=== PATIENT | male | born 1950 | race Caucasian/White ===

== ENCOUNTER 2019-06-14 03:21 | Emergency (ER) | payer MEDICARE, BC ==
[2019-06-14] MEDS ORDERED: Phenylephrine 0.5% Nasal Spray 15 ML Bot NASBOTH PRN (03:39)
[2019-06-14 03:51] VITALS: BP 180/64; PULSE 68
--- NOTE | 2019-06-14 03:53 | EDM.PDOC ---
ED HPI GENERAL MEDICAL PROBLEM - General Chief Complaint: ENT Problem Stated Complaint: Bloody nose Time Seen by Provider: 06/14/19 03:44 Source of Information: Reports: Patient History Limitations: Reports: No Limitations - History of Present Illness INITIAL COMMENTS - FREE TEXT/NARRATIVE: Pt with acute onset bloody nose From right nares No trauma Pt seen in clinic earlier today for same Clinic placed gauze in nares at that time Onset: Today, Sudden Duration: Hour(s): Location: Reports: Face - Related Data Allergies Allergy/AdvReac Type Severity Reaction Status Date / Time ciprofloxacin Allergy Hives Verified 12/05/15 07:12 Penicillins Allergy Hives Verified 12/05/15 07:12 prednisone Allergy Confusion Verified 12/05/15 07:12 Escin (Aesculus) Allergy Hives Uncoded 12/05/15 07:12 Home Meds: Home Meds Aspirin [Ecotrin] 325 mg PO DAILY 09/04/15 [History] Lisinopril 40 mg PO DAILY #30 tablet 10/22/15 [Rx] Cyanocobalamin (Vitamin B-12) [Vitamin B-12] 1 tab PO DAILY 11/14/15 [History] Gabapentin [Neurontin] 100 mg PO DAILY 11/14/15 [History] Acetaminophen [Tylenol] 650 mg PO Q6H PRN 06/14/19 [History] Furosemide [Lasix] 40 mg PO DAILY 06/14/19 [History] Past Medical History HEENT History: Reports: Impaired Vision Cardiovascular History: Reports: Angina, High Cholesterol, Hypertension Respiratory History: Reports: Sleep Apnea Gastrointestinal History: Reports: Hemorrhoids Genitourinary History: Reports: None Musculoskeletal History: Reports: Other (See Below) Other Musculoskeletal History: Osteomyelitis of sternum and lumbar region Neurological History: Reports: Concussion, CVA, Migraines Psychiatric History: Reports: Depression Endocrine/Metabolic History: Reports: Diabetes, Type II Hematologic History: Reports: Blood Transfusion(s) Dermatologic History: Reports: Other (See Below) Other Dermatologic History: right toenail fungus and left foot great toe only - Infectious Disease History Infectious Disease History: Reports: Chicken Pox, Measles, Mumps, Rheumatic Fever, Rubella - Past Surgical History GI Surgical History: Reports: EGD, Hernia, Inguinal Musculoskeletal Surgical History: Reports: Other (See Below) ED ROS ENT - Review of Systems Review Of Systems: See Below HEENT: Reports: Nosebleed ED EXAM, ENT - Physical Exam Exam: See Below Exam Limited By: No Limitations General Appearance: Alert, No Apparent Distress Nose: Active Bleeding, Dried Blood, Other (Bleeding from right nares) Course - Orders/Labs/Meds Orders: Active Orders 24 hr Category Date Time Status Phenylephrine [Lebron-Synephrine 0.5% Regular Nasal [place]] Med 06/14/19 03:39 Active 10 ml NASBOTH ASDIRECTED PRN Medication Orders Phenylephrine HCl (Lebron-Synephrine 0.5% Regular Nasal [place]) 10 ml NASBOTH ASDIRECTED PRN PRN Reason: nose bleed Last Admin: 06/14/19 03:43 Dose: 10 ml Meds: Medications Generic Name Dose Route Start Last Admin Trade Name Freq PRN Reason Stop Dose Admin Phenylephrine HCl 10 ml 06/14/19 03:39 06/14/19 03:43 Lebron-Synephrine 0.5% Regular Nasal [place] NASBOTH 10 ml ASDIRECTED PRN Administration nose bleed - Re-Assessments/Exams Free Text/Narrative Re-Assessment/Exam: 06/14/19 03:49 7.5 cm nasal balloon placed in right nares without difficulty Departure - Departure Time of Disposition: 04:00 Disposition: Home, Self-Care 01 Clinical Impression: Epistaxis - Discharge Information *PRESCRIPTION DRUG MONITORING PROGRAM REVIEWED*: Not Applicable *COPY OF PRESCRIPTION DRUG MONITORING REPORT IN PATIENT ROMULO: Not Applicable Instructions: Nosebleed, [id number] Additional Instructions: Leave balloon in 48 hours Follow up in clinic - My Orders Last 24 Hours: My Active Orders 06/14/19 03:39 Phenylephrine [Lebron-Synephrine 0.5% Regular Nasal [place]] 10 ml NASBOTH ASDIRECTED PRN - Assessment/Plan Last 24 Hours: My Active Orders 06/14/19 03:39 Phenylephrine [Lebron-Synephrine 0.5% Regular Nasal [place]] 10 ml NASBOTH ASDIRECTED PRN
== END 2019-06-14 04:15 | disposition home or self-care (01) ==
LOC: LL.ED 03:21
DX: R04.0 Epistaxis (principal); I10 Essential (primary) hypertension; E78.00 Pure hypercholesterolemia, unspecified; E11.9 Type 2 diabetes mellitus without complications; F32.9 Major depressive disorder, single episode, unspecified; Z79.899 Other long term (current) drug therapy; Z79.82 Long term (current) use of aspirin; Z88.0 Allergy status to penicillin; Z88.1 Allergy status to other antibiotic agents; Z88.8 Allergy status to other drugs, medicaments and biological substances
CPT/HCPCS: 30903; 99283-25; A9270-GY

== ENCOUNTER 2019-06-14 17:46 | Inpatient (IN) | payer MEDICARE, BC ==
--- NOTE | 2019-06-14 17:55 | EDM.PDOC ---
ED HPI GENERAL MEDICAL PROBLEM - General Chief Complaint: General Stated Complaint: headache Time Seen by Provider: 06/14/19 17:46 Source of Information: Reports: Patient, Old Records ([facility] EMR. No paper hospital chart available.) History Limitations: Reports: No Limitations - History of Present Illness INITIAL COMMENTS - FREE TEXT/NARRATIVE: The patient drove himself to the emergency room via private automobile for evaluation of 7/10 throbbing bilateral frontal headache right greater than left , with symptoms starting at about 2 AM after he left this facility for treatment of right sided epistaxis. In addition, note that about 10 AM this morning the patient began experiencing some superior retrosternal 3/10 chest pressure with radiation to his neck bilaterally and intrascapular region. Symptoms were associated with some diaphoresis and nausea with no known previous history of coronary artery disease, although he has been diagnosed with angina based on his medical records. His blood pressures at home have been elevated in the 180s/60s with no medications taken for his symptoms to this point. He denies any medication noncompliance, although he has been holding his aspirin for about 1-2 weeks. No recent history of abdominal pain, heartburn, emesis, diarrhea, melena, gross hematochezia, or any food intolerance, including fatty foods, etc., although his stools been somewhat dark today secondary to his recent epistaxis above. He denies any gross hematuria, colic, or other UTI symptoms. The patient also denies any recent fever, cough, wheezing , dyspnea, etc.. No history of recent visual changes, diplopia, change in mental status, or other change in neurological status.. Onset: Today, Gradual Onset Date: 06/14/19 Onset Time: 02:00 Duration: Constant, Getting Worse Location: Reports: Head, Neck, Chest, Back, Radiates to. Denies: Face, Abdomen , Pelvis, Upper Extremity, Left, Upper Extremity, Right Quality: Reports: Pressure (As above), Throbbing Severity: Moderate Improves with: Reports: None Worsens with: Reports: None Context: Reports: Other (As above). Denies: Activity, Sick Contact, Trauma Associated Symptoms: Reports: Chest Pain, Diaphoresis, Headaches, Nausea/ Vomiting (As above). 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) Middle Chest Pain Score (Numeric/FACES): 3 Bilateral Frontal Headache Pain Score (Numeric/FACES): 7 - Related Data Allergies Allergy/AdvReac Type Severity Reaction Status Date / Time ciprofloxacin Allergy Hives Verified 06/14/19 18:14 Penicillins Allergy Hives Verified 06/14/19 18:14 prednisone Allergy Confusion Verified 06/14/19 18:14 Escin (Aesculus) Allergy Hives Uncoded 06/14/19 18:14 Home Meds: Home Meds Aspirin [Ecotrin] 325 mg PO DAILY 09/04/15 [History] Lisinopril 40 mg PO DAILY #30 tablet 10/22/15 [Rx] Cyanocobalamin (Vitamin B-12) [Vitamin B-12] 1 tab PO DAILY 11/14/15 [History] Gabapentin [Neurontin] 100 mg PO DAILY 11/14/15 [History] Acetaminophen [Tylenol] 650 mg PO Q6H PRN 06/14/19 [History] Furosemide [Lasix] 40 mg PO DAILY 06/14/19 [History] Metoprolol Tartrate 50 mg PO BID 06/14/19 [History] Sertraline [Zoloft] 50 mg PO DAILY 06/14/19 [History] Past Medical History HEENT History: Reports: Hard of Hearing, Impaired Vision, Other (See Below). 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 Patient wears glasses. Cardiovascular History: Reports: Angina, High Cholesterol, Hypertension, PVD, Other (See Below). Denies: Afib, Aneurysm, Arrhythmia, Blood Clots/VTE/DVT, Bypass, CAD, Cardiomyopathy, Heart Failure, Heart Murmur, ND, PTCA, Stents, Syncope Other Cardiovascular History: Known bilateral carotid occlusive disease with right sided complete internal carotid occlusion and secondary CVA with no surgery to this point. Respiratory History: Reports: Intubation, Previous, Other (See Below). Denies: Asthma, Bronchitis, Recurrent, COPD, Intubation, Difficult, PE, Pneumonia, Recurrent, Pneumothorax, Sleep Apnea, TB Other Respiratory History: In spite of previous medical records patient denies sleep apnea and has never had a sleep study. Gastrointestinal History: Reports: GERD, Hemorrhoids. Denies: Celiac Disease, Cholelithiasis, Chronic Constipation, Chronic Diarrhea, Colon Polyp, Fecal Incontinence, Gastritis, GI Bleed, Hepatitis, Hiatal Hernia, Inflammatory Bowel Disease, Irritable Bowel Syndrome, Jaundice, Pancreatitis, PUD Genitourinary History: Reports: BPH. Denies: Acute Renal Failure, Chronic Renal Insuffiency, Renal Calculus, STD, Urinary Incontinence, UTI, Recurrent Musculoskeletal History: Reports: Arthritis, Back Pain, Chronic, Fracture, Neck Pain, Chronic, Osteoarthritis, Other (See Below). Denies: Gout, Osteoporosis, RA, SLE Other Musculoskeletal History: Osteomyelitis of sternum and lumbar region requiring causing sternal surgery as below and additional extensive IV antibiotic therapy/hospitalization in 2016. Right distal fibular fracture on . Neurological History: Reports: CVA, Headaches, Chronic, Neuropathy, Peripheral, Other (See Below). Denies: Cerebral Aneurysms, Concussion, Head Trauma, MS, Parkinson's, Seizure, TIA, Vertigo Other Neuro History: Right CVA secondary to carotid occlusive disease in 2016 with borderline persistent mild left hemiparesis. Tension rather than migraine headaches by patient history. Radiculopathy versus peripheral neuropathy secondary to his osteoarthritis. Psychiatric History: Reports: Anxiety, Bipolar, Depression. Denies: Abuse, Victim of, ADD, ADHD, Addiction, Psych Hospitalization(s), PTSD, Suicide Attempt , Suicidal Ideation Endocrine/Metabolic History: Reports: Diabetes, Type II, Obesity/BMI 30+, Other (See Below). Denies: Diabetes, Type I, Diabetes Mellitus, Type 3c, Hypothyroidism, IDDM, Osteopenia, Osteoporosis Other Endocrine/Metabolic History: Borderline Diabetes with no current medical therapy. Hematologic History: Reports: Anemia, Blood Transfusion(s), Other (See Below). Denies: Iron Deficiency Other Hematologic History: 2 Units of packed red blood cells and 2017 with spinal fusion as below. Immunologic History: Denies: AIDS, HIV, SLE Oncologic (Cancer) History: Denies: Basal Cell Carcinoma, Colon, Hodgkin's Lymphoma, Leukemia, Lymphoma, Malignant Melanoma, Non-Hodgkin's Lymphoma, Prostate, Squamous Cell Carcinoma Dermatologic History: Reports: Chronic Cellulitis, Other (See Below) Other Dermatologic History: Chronic eschar/cellulitis in the lateral right knee area - Infectious Disease History Infectious Disease History: Reports: Chicken Pox, Measles, Mumps, Rheumatic Fever, Rubella. Denies: C-Difficile, Meningitis, Mononucleosis, MRSA, Pertussis (Whooping Cough), Scarlet Fever, Shingles, TB, VRE - Past Surgical History Head Surgeries/Procedures: Reports: None HEENT Surgical History: Reports: Oral Surgery, Other (See Below). Denies: Adenoidectomy, Cataract Surgery, Eye Surgery, Laser Surgery, LASIK, Myringotomy w Tube(s), Naso-Sinus Surgery, Tonsillectomy Other HEENT Surgeries/Procedures: Complete teeth extraction. Cardiovascular Surgical History: Reports: None. Denies: Carotid Endarterectomy , Varicose, Vascular Surgery Other Cardiovascular Surgeries/Procedures: Sternotomy on 09/04/15 secondary to osteomyelitis. Respiratory Surgical History: Reports: Thoracotomy, Other (See Below). Denies: Thoracentesis Other Respiratory Surgeries/Procedures: Sternotomy on 09/04/15 secondary to osteomyelitis. GI Surgical History: Reports: EGD, Hernia, Inguinal, Other (See Below). Denies : Appendectomy, Cholecystectomy, Colonoscopy, Hernia, Abdominal, Hernia Repair/ Other Other GI Surgeries/Procedures: EGD in 1979. Right inguinal hernia repair in 2001. Male Surgical History: Reports: None. Denies: Circumcision, TURP- Transurethral Resection of Prostate, Vasectomy Endocrine Surgical History: Reports: None. Denies: Thyroid Biopsy Neurological Surgical History: Reports: Lumbar Spine, Sacral Spine, Spinal Fusion, Other (See Below). Denies: C-Spine, Discectomy, Intracranial, Laminectomy, Thoracic Spine, Vertebroplasty Other Neurological Surgeries/Procedures: L4-S1 spinal fusion in 2017. Musculoskeletal Surgical History: Reports: None, Other (See Below). Denies: Arthroscopic Procedure, Carpal Tunnel, Ganglion Cyst, Joint Replacement, ORIF, Shoulder Surgery Oncologic Surgical History: Reports: None Dermatological Surgical History: Reports: None - Past Imaging History Past Imaging History: Reports: Bone Scan (10/01/15), Carotid US (05/04/18), CAT Scan (06/20/16), MRI (Lumbar spine on 09/28/15), Stress Testing (Exercise stress test in [address] [facility] per patient history) Social & Family History - Family History HEENT: Reports: Macular Degeneration, Other (See Below). Denies: Glaucoma, Retinal Detachment Other HEENT Family History: Mother with macular degeneration. Cardiac: Reports: Heart Failure, Hypertension, Other (See Below). Denies: Aneurysm, Arrhythmia, Blood Clots/VTE/DVT, Bypass, CAD, Heart Murmur, High Cholesterol, ND, PVD/COD, Syncope Other Cardiac Family History: Father with fatal CHF at age 87. Respiratory: Reports: None. Denies: Asthma, COPD, PE, Pneumothorax, Sleep Apnea GI: Reports: None. Denies: Celiac Disease, Cholelithiasis, Colon Polyps, GERD, GI bleed, Inflammatory Bowel Disease, Irritable Bowel Syndrome, PUD : Reports: Renal Calculus, Other (See Below). Denies: Renal Disease/ Insufficiency Other Family History: Father with urolithiasis Musculoskeletal: Reports: None. Denies: Arthritis, Gout, Osteoarthritis, RA, SLE Neurological: Reports: None. Denies: Alzheimers Disease, CVA, Dementia, Migraines, MS, Seizure, TIA Psychiatric: Reports: None. Denies: Abuse, Victim of, ADD, Anxiety, Depression , Psych Hospitalization(s), PTSD, Suicide Attempt Endocrine/Metabolic: Reports: Hypothyroidism, Other (See Below). Denies: Diabetes, Gestational, Diabetes, Type I, Diabetes, type II, Diabetes Mellitus, Type 3c Other Endocrine/Metabolic Family History: Mother with hypothyroidism. Hematologic: Reports: None. Denies: SLE Immunologic: Reports: None. Denies: AIDS, HIV, SLE Dermatologic: Reports: None. Denies: Eczema, Psoriasis Oncologic: Reports: Prostate, Other (See Below) Other Oncologic Family History: Brother with prostate cancer in his late 50s. - Tobacco Use Smoking Status *Q: Former Smoker Tobacco Use Within Last Twelve Months: No Years of Tobacco use: 46 Packs/Tins Daily: 1 Packs/Tins Daily Comment: Smoked between ages 19 and 65 with maximum use of 1.5 packs per day. Used Tobacco, but Quit: Yes Smoking Cessation Information Provided To Patient: No Second Hand Smoke Exposure: No Second Hand Smoke Education Provided: No - Caffeine Use Caffeine Use: Reports: Coffee (3 cups per day), Soda (2 sodas per day). Denies : Energy Drinks, Tea - Alcohol Use Alcohol Use History: Yes Days Per Week of Alcohol Use: 0 Number of Drinks Per Day: 0 Number of Drinks Per Day Comment: No previous DWIs, problems with alcohol abuse , etc. 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 ED EXAM, GENERAL - Physical Exam Exam: See Below Exam Limited By: No Limitations General Appearance: Alert, WD/WN, No Apparent Distress, Anxious (Mild) Eye Exam: Bilateral Eye: Normal Fundi, Normal Inspection (No nystagmus. Glasses not brought today), PERRL Ears: Normal External Exam, Normal Canal, Normal TMs, Hearing Loss (Bilateral chronic hearing loss stable by history- mild) Nose: No Blood, Clear Rhinorrhea, Other (Right-sided Rhino Rocket). No: Nasal Tenderness Throat/Mouth: Normal Lips, Normal Gums, Normal Oropharynx, Normal Voice, No Airway Compromise, Other (No evidence of posterior nasal bleeding in the hypopharynx ). No: Normal Teeth (Complete absent dentition with complete dentures uppers and lowers), Dysphagia, Perioral Cyanosis Head: Atraumatic, Normocephalic. No: Facial Swelling, Facial Tenderness, Sinus Tenderness Neck: Normal Inspection, Supple, Non-Tender, Full Range of Motion. No: Carotid Bruit, Lymphadenopathy (L), Lymphadenopathy (R), Thyromegaly Respiratory/Chest: No Respiratory Distress, No Accessory Muscle Use, Chest Non- Tender, Rales (Mild bilateral basilar rales). No: Pleural Rub, Retractions Cardiovascular: Normal Peripheral Pulses, Regular Rate, Rhythm, No Gallop, No JVD, No Murmur, No Rub. No: No Edema (Dependent edema as below), Gallop/S3, Gallop/S4, Friction Rub Peripheral Pulses: 2+: Radial (L), Radial (R), Dorsalis Pedis (L), Dorsalis Pedis (R) GI/Abdominal: Normal Bowel Sounds, Soft, Non-Tender, No Organomegaly, No Distention, No Abnormal Bruit, No Mass, Pelvis Stable, Other (Obese). No: Guarding (Male) Exam: Deferred Rectal (Males) Exam: Deferred Back Exam: Full Range of Motion, Other (Mild scoliosis). No: CVA Tenderness (L) , CVA Tenderness (R), Muscle Spasm, Paraspinal Tenderness, Vertebral Tenderness Extremities: Normal Inspection, Normal Range of Motion, Non-Tender, Normal Capillary Refill, Pedal Edema (Trace bilateral pedal/pretibial edema). No: Jelani's Sign Neurological: Alert, Oriented, CN II-XII Intact, Normal Cognition, Normal Gait, Normal Reflexes (Negative Babinski's), No Motor/Sensory Deficits Psychiatric: Anxious (Mild), Depressed Mood (Borderline) Skin Exam: Wound/Incision (1 cm chronic eschar in the lateral right knee area with no evidence of acute infection). No: Diaphoretic Lymphatic: No Adenopathy EKG INTERPRETATION EKG Date: 06/14/19 Time: 18:08 Rhythm: NSR Rate (Beats/Min): 92 [place]: Normal (Left) P-Wave: Present QRS: Normal (0.10 seconds representing mild repolarization changes) ST-T: Normal QT: Normal WY/PQ Interval: Neuro 0.13 seconds representing a short [place] interval with no delta waves noted. Extreme poor R-wave progression in the anterior leads. Comparison: NA - No Prior EKG EKG Interpretation Comments: 1. No acute ischemic changes 2. Repolarization changes 3. Short [place] interval Course - Vital Signs Last Recorded V/S: Last Vital Signs Temp 36.7 C 06/14/19 17:46 Pulse 80 06/14/19 19:50 Resp 16 06/14/19 19:50 BP 169/73 H 06/14/19 19:50 Pulse Ox 96 06/14/19 19:50 Vital Signs - 24 hr 06/14/19 06/14/19 06/14/19 17:46 17:52 17:56 Temperature [ 36.7 C Temporal] Pulse, 91 94 Peripheral [ Left Pulse Oximetry] Respiratory 16 Rate Blood Pressure Blood Pressure 211/77 H 225/106 H [Left Upper Arm ] O2 Sat by Pulse 96 Oximetry O2 Sat by Pulse 87 L Oximetry [Room Air] 06/14/19 06/14/19 06/14/19 17:57 18:15 18:24 Temperature [ Temporal] Pulse, 87 Peripheral [ Left Pulse Oximetry] Respiratory 14 Rate Blood Pressure 225/106 H 180/78 H Blood Pressure 177/73 H [Left Upper Arm ] O2 Sat by Pulse 95 Oximetry O2 Sat by Pulse Oximetry [Room Air] 06/14/19 06/14/19 06/14/19 19:00 19:15 19:30 Temperature [ Temporal] Pulse, 80 80 84 Peripheral [ Left Pulse Oximetry] Respiratory 12 13 14 Rate Blood Pressure Blood Pressure 199/81 H 205/73 H 185/67 H [Left Upper Arm ] O2 Sat by Pulse 94 L 94 L 94 L Oximetry O2 Sat by Pulse Oximetry [Room Air] 06/14/19 06/14/19 19:40 19:50 Temperature [ Temporal] Pulse, 85 80 Peripheral [ Left Pulse Oximetry] Respiratory 13 16 Rate Blood Pressure Blood Pressure 163/73 H 169/73 H [Left Upper Arm ] O2 Sat by Pulse 95 96 Oximetry O2 Sat by Pulse Oximetry [Room Air] - Orders/Labs/Meds Orders: Active Orders 24 hr Category Date Time Status Cardiac Monitoring [RC] . DIRECTED Care 06/14/19 17:56 Active EKG Documentation Completion [RC] ASDIRECTED Care 06/14/19 17:56 Active Oxygen Therapy, ED [RC] PRN Care 06/14/19 17:56 Active Peripheral IV Care [RC] . DIRECTED Care 06/14/19 17:56 Active Pulse Oximetry [RC] CONTINUOUS Care 06/14/19 17:56 Active Up With Assistance [RC] PFP Care 06/14/19 17:56 Active Vital Signs [RC] PFP Care 06/14/19 17:56 Active Nothing per Oral Now Diet [DIET] Diet 06/14/19 Breakfast Active Chest 1V Frontal [CR] Stat Exams 06/14/19 17:56 Taken Nitroglycerin [Nitrostat] Med 06/14/19 17:57 Stat 0.4 mg SL ONETIME STA Nitroglycerin [Nitrostat] Med 06/14/19 18:21 Stat 0.4 mg SL ONETIME STA Sodium Chloride 0.9% [Saline Flush] Med 06/14/19 17:56 Active 10 ml FLUSH ASDIRECTED PRN Obtain Past Medical Record [OM.PC] Urgent Oth 06/14/19 17:56 Active Peripheral IV Insertion Adult [OM.PC] Stat Oth 06/14/19 17:56 Ordered Resuscitation Status Stat Resus Stat 06/14/19 17:56 Ordered EKG 12 Lead [EK] Stat Ther 06/14/19 17:56 Ordered Medication Orders Nitroglycerin (Nitrostat) 0.4 mg SL ONETIME STA Stop: 06/15/19 17:58 Last Admin: 06/14/19 17:57 Dose: 0.4 mg Nitroglycerin (Nitrostat) 0.4 mg SL ONETIME STA Stop: 06/15/19 18:22 Last Admin: 06/14/19 18:24 Dose: 0.4 mg Sodium Chloride (Saline Flush) 10 ml FLUSH ASDIRECTED PRN PRN Reason: Keep Vein Open Last Admin: 06/14/19 19:37 Dose: 10 ml Admin: 06/14/19 19:21 Dose: 10 ml Admin: 06/14/19 18:25 Dose: 10 ml Labs: Laboratory Tests 06/14/19 06/14/19 06/14/19 Range/Units 18:04 18:04 18:04 WBC 8.8 (4.0-10.2) K/uL RBC 3.69 L (4.33-5.41) M/uL Hgb 12.6 L D (13.1-16.8) g/dL Hct 36.2 L (39.0-49.0) % MCV 98.1 H D (84.0-98.0) fL MCH 34.1 H (28.2-33.3) pg MCHC 34.8 (31.7-36.0) g/dL RDW 14.6 H (11.2-14.1) % Plt Count 201 (150-350) K/uL Neut % (Auto) 68.9 (45.0-80.0) % Lymph % (Auto) 20.8 (10.0-50.0) % [place] % (Auto) 8.4 (2.0-14.0) % Eos % (Auto) 1.3 (0.0-5.0) % Baso % (Auto) 0.6 (0.0-2.0) % Neut # (Auto) 6.07 (1.40-7.00) K/uL Lymph # (Auto) 1.83 (0.50-3.50) K/uL [place] # (Auto) 0.74 (0.00-1.00) K/uL Eos # (Auto) 0.11 (0.00-0.50) K/uL Baso # (Auto) 0.05 (0.00-0.20) K/uL PT 9.9 (9.5-12.0) SEC INR 1.0 APTT 25.8 (21.0-31.3) SEC D-Dimer, Quantitative 124 (0-400) ng/mL Sodium (136-145) mmol/L Potassium (3.5-5.1) mmol/L Chloride (98-107) mmol/L Carbon Dioxide (21.0-32.0) mmol/L BUN (7-18) mg/dL Creatinine (0.51-1.17) mg/dL Est Cr Clr Drug Dosing Estimated GFR (MDRD) mL/min Glucose (74-106) mg/dL Lactic Acid (0.4-2.0) mmol/L Uric Acid (2.6-7.2) mg/dL Calcium (8.5-10.1) mg/dL Magnesium (1.8-2.4) mg/dL Total Bilirubin (0.2-1.0) mg/dL AST (15-37) U/L ALT (12-78) U/L Alkaline Phosphatase (46-116) IU/L Creatine Kinase (26-308) U/L Creatine Kinase Index (0.0-2.5) % CK-MB (CK-2) (0.00-3.60) ng/mL Troponin I (0.000-0.056) ng/mL NT-Pro-B Natriuret Pep (0-125) pg/mL Total Protein (6.4-8.2) g/dL Albumin (3.4-5.0) g/dL TSH, Ultra Sensitive (0.358-3.740) mIU/mL 06/14/19 06/14/19 Range/Units 18:04 18:04 WBC (4.0-10.2) K/uL RBC (4.33-5.41) M/uL Hgb (13.1-16.8) g/dL Hct (39.0-49.0) % MCV (84.0-98.0) fL MCH (28.2-33.3) pg MCHC (31.7-36.0) g/dL RDW (11.2-14.1) % Plt Count (150-350) K/uL Neut % (Auto) (45.0-80.0) % Lymph % (Auto) (10.0-50.0) % [place] % (Auto) (2.0-14.0) % Eos % (Auto) (0.0-5.0) % Baso % (Auto) (0.0-2.0) % Neut # (Auto) (1.40-7.00) K/uL Lymph # (Auto) (0.50-3.50) K/uL [place] # (Auto) (0.00-1.00) K/uL Eos # (Auto) (0.00-0.50) K/uL Baso # (Auto) (0.00-0.20) K/uL PT (9.5-12.0) SEC INR APTT (21.0-31.3) SEC D-Dimer, Quantitative (0-400) ng/mL Sodium 140 (136-145) mmol/L Potassium 4.2 (3.5-5.1) mmol/L Chloride 103 (98-107) mmol/L Carbon Dioxide 27.5 (21.0-32.0) mmol/L BUN 18 (7-18) mg/dL Creatinine 1.61 H (0.51-1.17) mg/dL Est Cr Clr Drug Dosing TNP Estimated GFR (MDRD) 43 mL/min Glucose 215 H (74-106) mg/dL Lactic Acid 2.8 H (0.4-2.0) mmol/L Uric Acid 8.5 H (2.6-7.2) mg/dL Calcium 8.7 (8.5-10.1) mg/dL Magnesium 1.7 L (1.8-2.4) mg/dL Total Bilirubin 0.4 (0.2-1.0) mg/dL AST 22 (15-37) U/L ALT 36 (12-78) U/L Alkaline Phosphatase 60 (46-116) IU/L Creatine Kinase 133 (26-308) U/L Creatine Kinase Index 1.6 (0.0-2.5) % CK-MB (CK-2) 2.10 (0.00-3.60) ng/mL Troponin I 0.064 H* (0.000-0.056) ng/mL NT-Pro-B Natriuret Pep 1431 H (0-125) pg/mL Total Protein 6.9 (6.4-8.2) g/dL Albumin 3.6 (3.4-5.0) g/dL TSH, Ultra Sensitive 1.987 (0.358-3.740) mIU/mL Meds: Medications Generic Name Dose Route Start Last Admin Trade Name Marah PRN Reason Stop Dose Admin Nitroglycerin 0.4 mg 06/14/19 17:57 06/14/19 17:57 Nitrostat SL 06/15/19 17:58 0.4 mg ONETIME STA Administration Nitroglycerin 0.4 mg 06/14/19 18:21 06/14/19 18:24 Nitrostat SL 06/15/19 18:22 0.4 mg ONETIME STA Administration Sodium Chloride 10 ml 06/14/19 17:56 06/14/19 19:37 Saline Flush FLUSH 10 ml ASDIRECTED PRN Administration Keep Vein Open Discontinued Medications Generic Name Dose Route Start Last Admin Trade Name Freelaina PRN Reason Stop Dose Admin Famotidine 40 mg 06/14/19 17:56 06/14/19 18:25 Pepcid IVPUSH 06/14/19 17:57 40 mg ONETIME ONE Administration Furosemide 60 mg 06/14/19 18:43 06/14/19 19:02 Lasix IVPUSH 06/14/19 18:44 60 mg NOW ONE Administration Labetalol HCl 10 mg 06/14/19 19:15 06/14/19 19:20 Normodyne IVPUSH 06/14/19 19:16 10 mg ONETIME ONE Administration Protocol Labetalol HCl 10 mg 06/14/19 19:31 06/14/19 19:34 Normodyne IVPUSH 06/14/19 19:32 10 mg ONETIME ONE Administration Protocol Nitroglycerin 0.5 gm 06/14/19 19:01 06/14/19 19:04 Nitro-Bid 2% TOP 06/14/19 19:02 0.5 gm ONETIME ONE Administration Potassium Chloride 20 meq 06/14/19 18:43 06/14/19 19:03 Klor-Con M20 PO 06/14/19 18:44 20 meq ONETIME ONE Administration - Radiology Interpretation Free Text/Narrative:: 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 Chest X-ray, portable, shows evidence of borderline right middle lobe pulmonary infiltrates versus atelectasis with mild mostly centralized CHF. Possible pulmonary hypertension. No pneumothorax Departure - Departure Time of Disposition: 20:00 Disposition: Admitted As Inpatient 68 Condition: Good Clinical Impression: Peptic reflux disease, Hyperuricemia, Renal insufficiency, Elevated lactic acid level, Mixed anxiety depressive disorder, Hypomagnesemia Chest pain Qualifiers: Chest pain type: precordial pain Qualified Code(s): R07.2 - Precordial pain Hypertension Qualifiers: Hypertension type: essential hypertension Qualified Code(s): I10 - Essential ( primary) hypertension Diabetes mellitus Qualifiers: Diabetes mellitus type: type 2 Diabetes mellitus termination clerk insulin use: without termination clerk use Diabetes mellitus complication status: without complication Qualified Code(s): E11.9 - Type 2 diabetes mellitus without complications Hyperlipidemia Qualifiers: Hyperlipidemia type: mixed hyperlipidemia Qualified Code(s): E78.2 - Mixed hyperlipidemia CHF (congestive heart failure) Qualifiers: Heart failure type: unspecified Heart failure chronicity: acute Qualified Code( s): I50.9 - Heart failure, unspecified COPD (chronic obstructive pulmonary disease) Qualifiers: COPD type: emphysema Emphysema type: panlobular Qualified Code(s): J43.1 - Panlobular emphysema Anemia Qualifiers: Anemia type: unspecified type Qualified Code(s): D64.9 - Anemia, unspecified Headache Qualifiers: Headache type: unspecified Headache chronicity pattern: acute headache Intractability: not intractable Qualified Code(s): R51 - Headache - Discharge Information *PRESCRIPTION DRUG MONITORING PROGRAM REVIEWED*: Not Applicable *COPY OF PRESCRIPTION DRUG MONITORING REPORT IN PATIENT ROMULO: Not Applicable Sepsis Event Note - Focused Exam Vital Signs: Vital Signs Temp Pulse Resp BP BP Pulse Ox Pulse Ox 06/14/19 19:50 80 16 169/73 H 96 06/14/19 19:40 85 13 163/73 H 95 06/14/19 19:30 84 14 185/67 H 94 L 06/14/19 19:15 80 13 205/73 H 94 L 06/14/19 19:00 80 12 199/81 H 94 L 06/14/19 18:24 180/78 H 06/14/19 18:15 87 14 177/73 H 95 06/14/19 17:57 225/106 H 06/14/19 17:56 87 L 06/14/19 17:52 94 225/106 H 06/14/19 17:46 36.7 C 91 16 211/77 H 96 Date Exam was Performed: 06/14/19 Time Exam was Performed: 20:08 - Problem List & Annotations (1) Chest pain SNOMED Code(s): 72541545 Code(s): R07.9 - CHEST PAIN, UNSPECIFIED Status: Acute Priority: High Current Visit: Yes Onset Date: 06/14/19 Annotation/Comment:: Chest pain protocol initiated in the emergency room upon patient's arrival. Note secondary to his recent epistaxis his aspirin and Brilinta were held, however. Chest pain completely resolved after one sublingual nitroglycerin tablets with additional nitroglycerin and nitro paste therapy initiated for blood pressure control and secondary to his previous distant history of angina per medical records. Initiate standard rule out ND orders. Cardiology consultation depending on his clinical course area Cardiolite stress test on an outpatient basis once his blood pressure is under better control. Qualifiers: Chest pain type: precordial pain Qualified Code(s): R07.2 - Precordial pain (2) CHF (congestive heart failure) SNOMED Code(s): 80751068 Code(s): I50.9 - HEART FAILURE, UNSPECIFIED Status: Acute Priority: High Current Visit: Yes Onset Date: 06/14/19 Annotation/Comment:: Echocardiogram on an outpatient basis. IV Lasix therapy initiated in the emergency room. Patient is already on an WADE inhibitor. Qualifiers: Heart failure type: unspecified Heart failure chronicity: acute Qualified Code(s): I50.9 - Heart failure, unspecified (3) Hypertension SNOMED Code(s): 62542297 Code(s): I10 - ESSENTIAL (PRIMARY) HYPERTENSION Status: Acute Priority: High Current Visit: Yes Annotation/Comment:: Blood Pressures refractory to medical therapy in the emergency room as above with aggressive therapy required. Continue to observe closely during this hospitalization with further medication adjustments depending on his clinical course. Headaches improved with treatment of his hypertension despite nitroglycerin therapy as above. Qualifiers: Hypertension type: essential hypertension Qualified Code(s): I10 - Essential (primary) hypertension (4) Elevated lactic acid level SNOMED Code(s): 4825825 Code(s): R79.89 - OTHER SPECIFIED ABNORMAL FINDINGS OF BLOOD CHEMISTRY Status: Acute Priority: High Current Visit: Yes Onset Date: 06/14/19 Annotation/Comment:: No fever, leukocytosis, or symptoms. No known exposure to infection. Lactic acid level will be repeated in 3 hours as per standard sepsis protocol, however no clinical evidence of sepsis, etc. No IV hydration/fluids secondary to patient's CHF as above. (5) Diabetes mellitus SNOMED Code(s): 32691029 Code(s): E11.9 - TYPE 2 DIABETES MELLITUS WITHOUT COMPLICATIONS Status: Chronic Priority: Medium Current Visit: Yes Annotation/Comment:: Elevated random glucose. Glycosylated hemoglobin in the a.m. Qualifiers: Diabetes mellitus type: type 2 Diabetes mellitus termination clerk insulin use: without termination clerk use Diabetes mellitus complication status: without complication Qualified Code(s): E11.9 - Type 2 diabetes mellitus without complications (6) Hyperlipidemia SNOMED Code(s): 47449677 Code(s): E78.5 - HYPERLIPIDEMIA, UNSPECIFIED Status: Chronic Priority: Medium Current Visit: Yes Annotation/Comment:: Lipid panel in the a.m. Qualifiers: Hyperlipidemia type: mixed hyperlipidemia Qualified Code(s): E78.2 - Mixed hyperlipidemia (7) Hyperuricemia SNOMED Code(s): 32808293 Code(s): E79.0 - HYPERURICEMIA W/O SIGNS OF INFLAM ARTHRIT AND TOPHACEOUS DIS Status: Acute Priority: Medium Current Visit: Yes Onset Date: Annotation/Comment:: Newly diagnosed. No recent history of gout attacks. Arthritis is otherwise been stable. Observe uric acid closely secondary to his IV Lasix therapy as above. (8) Mixed anxiety depressive disorder SNOMED Code(s): 246689625 Code(s): F41.8 - OTHER SPECIFIED ANXIETY DISORDERS Status: Chronic Priority: Medium Current Visit: Yes Annotation/Comment:: Stable by history (9) Peptic reflux disease SNOMED Code(s): 964606937 Code(s): K21.9 - GASTRO-ESOPHAGEAL REFLUX DISEASE WITHOUT ESOPHAGITIS Status: Chronic Priority: Medium Current Visit: Yes Annotation/Comment:: High-dose IV Pepcid therapy given as GI prophylaxis. Otherwise stable by history. (10) Renal insufficiency SNOMED Code(s): 537266844, 928128292 Code(s): N28.9 - DISORDER OF KIDNEY AND URETER, UNSPECIFIED Status: Acute Priority: Medium Current Visit: Yes Onset Date: 06/14/19 Annotation/ Comment:: Newly diagnosed. Possible diabetic nephropathy. Note refractory hypertension as above with workup for renal artery stenosis depending on his clinical course. Note history of significant carotid occlusive disease. Continue WADE inhibitor therapy with caution for now. Obtain urine for microalbumin. Continue to closely secondary to IV Lasix therapy. (11) Epistaxis SNOMED Code(s): 486146663 Code(s): R04.0 - EPISTAXIS Status: Acute Priority: Medium Current Visit : Yes Onset Date: 06/14/19 Annotation/Comment:: Controlled with [employer] as above. Continue to observe for now. (12) Anemia SNOMED Code(s): 283767463 Code(s): D64.9 - ANEMIA, UNSPECIFIED Status: Acute Priority: Medium Current Visit: Yes Onset Date: 06/14/19 Annotation/Comment:: Note newly diagnosed renal insufficiency and recent epistaxis. Observe for now. Qualifiers: Anemia type: unspecified type Qualified Code(s): D64.9 - Anemia, unspecified (13) COPD (chronic obstructive pulmonary disease) SNOMED Code(s): 30107453 Code(s): J44.9 - CHRONIC OBSTRUCTIVE PULMONARY DISEASE, UNSPECIFIED Status : Acute Priority: Medium Current Visit: Yes Onset Date: 06/14/19 Annotation/Comment:: Note history of tobacco use. COPD by chest x-ray. Consider PFTs once his cardiac status, etc. has improved. Qualifiers: COPD type: emphysema Emphysema type: panlobular Qualified Code(s): J43.1 - Panlobular emphysema (14) Headache SNOMED Code(s): 79753014 Code(s): R51 - HEADACHE Status: Acute Priority: High Current Visit: Yes Onset Date: 06/14/19 Annotation/Comment:: As above Qualifiers: Headache type: unspecified Headache chronicity pattern: acute headache Intractability: not intractable Qualified Code(s): R51 - Headache (15) Hypomagnesemia SNOMED Code(s): 045553310 Code(s): E83.42 - HYPOMAGNESEMIA Status: Acute Priority: Medium Current Visit: Yes Onset Date: 06/14/19 Annotation/Comment:: Initiate magnesium oxide therapy. Consider magnesium sulfate for headache and blood pressure control. - Problem List Review Problem List Initiated/Reviewed/Updated: Yes - My Orders Last 24 Hours: My Active Orders 06/14/19 17:56 Cardiac Monitoring [RC] . DIRECTED EKG Documentation Completion [RC] ASDIRECTED Oxygen Therapy, ED [RC] PRN Peripheral IV Care [RC] . DIRECTED Pulse Oximetry [RC] CONTINUOUS Up With Assistance [RC] PFP Vital Signs [RC] PFP Chest 1V Frontal [CR] Stat Sodium Chloride 0.9% [Saline Flush] 10 ml FLUSH ASDIRECTED PRN Obtain Past Medical Record [OM.PC] Urgent Peripheral IV Insertion Adult [OM.PC] Stat Resuscitation Status Stat EKG 12 Lead [EK] Stat 06/14/19 17:57 Nitroglycerin [Nitrostat] 0.4 mg SL ONETIME STA 06/14/19 18:21 Nitroglycerin [Nitrostat] 0.4 mg SL ONETIME STA 06/14/19 Breakfast Nothing per Oral Now Diet [DIET] - Assessment/Plan Admission H&P: Please use this note as an admission H&P Last 24 Hours: My Active Orders 06/14/19 17:56 Cardiac Monitoring [RC] . DIRECTED EKG Documentation Completion [RC] ASDIRECTED Oxygen Therapy, ED [RC] PRN Peripheral IV Care [RC] . DIRECTED Pulse Oximetry [RC] CONTINUOUS Up With Assistance [RC] PFP Vital Signs [RC] PFP Chest 1V Frontal [CR] Stat Sodium Chloride 0.9% [Saline Flush] 10 ml FLUSH ASDIRECTED PRN Obtain Past Medical Record [OM.PC] Urgent Peripheral IV Insertion Adult [OM.PC] Stat Resuscitation Status Stat EKG 12 Lead [EK] Stat 06/14/19 17:57 Nitroglycerin [Nitrostat] 0.4 mg SL ONETIME STA 06/14/19 18:21 Nitroglycerin [Nitrostat] 0.4 mg SL ONETIME STA 06/14/19 Breakfast Nothing per Oral Now Diet [DIET] Assessment:: As above Plan: As above. Extensive precautions were given to the patient, who is in agreement with the treatment plan. The patient will require about 3-4 days of inpatient/ acute care secondary to multiple health problems as above.
[2019-06-14] MEDS ORDERED: Famotidine 20 MG/2 ML SDV IVPUSH ONE (17:56)
[2019-06-14] MEDS ORDERED: Nitroglycerin 0.4 MG Tab.SL SL STA ×2 (17:57→18:21)
[2019-06-14] MEDS: Sodium Chloride 0.9% 10 ML Syringe FLUSH PRN ×4 (18:25→21:17)
[2019-06-14 18:32] LABS: PTT,PARTIAL THROMBOPLSTIN TIME 25.8 SEC (21.0-31.3)
[2019-06-14 18:39] LABS: CHLORIDE,CL 103 mmol/L (98-107); SODIUM,NA 140 mmol/L (136-145)
[2019-06-14] MEDS ORDERED: Furosemide 40 MG/4 ML VIAL IVPUSH ONE (18:43)
[2019-06-14] MEDS ORDERED: Potassium Chloride 20 MEQ Tab.ER PO ONE (18:43)
[2019-06-14] MEDS ORDERED: Nitroglycerin 2% Oint 1 GM UD Packet TOP ONE (19:01)
[2019-06-14] MEDS ORDERED: Labetalol 20 MG/4 ML Syringe IVPUSH ONE ×2 (19:15→19:31)
[2019-06-14] MEDS ORDERED: Magnesium Sulfate/Water 100 ML IV ONE (20:26)
[2019-06-14] MEDS ORDERED: Sodium Chloride 0.9% 10 ML Syringe FLUSH PRN (20:27)
[2019-06-14] MEDS ORDERED: Temazepam 15 MG Cap PO PRN (20:27)
[2019-06-14] MEDS: Acetaminophen 325 MG Tab PO PRN (21:22)
[2019-06-15] MEDS: Nitroglycerin 2% Oint 1 GM UD Packet TOP SCH ×2 (01:54→10:06)
[2019-06-15] MEDS: Furosemide 40 MG/4 ML VIAL IVPUSH SCH ×2 (01:55→10:10)
[2019-06-15] MEDS: Acetaminophen 325 MG Tab PO PRN (01:58)
[2019-06-15] MEDS: Sodium Chloride 0.9% 10 ML Syringe FLUSH PRN ×2 (01:58→10:17)
[2019-06-15] MEDS ORDERED: Metoprolol Tartrate 25 MG Tab PO SCH (08:00)
[2019-06-15] MEDS ORDERED: Potassium Chloride 20 MEQ Tab.ER PO SCH (08:00)
[2019-06-15] MEDS ORDERED: Lisinopril 20 MG Tab PO SCH (08:00)
[2019-06-15] MEDS ORDERED: Cyanocobalamin (Vitamin B12) 1,000 MCG Tab PO SCH (08:00)
[2019-06-15] MEDS ORDERED: Gabapentin 100 MG Cap PO SCH (08:00)
[2019-06-15] MEDS ORDERED: Magnesium Oxide 400 MG Tab PO SCH (08:00)
[2019-06-15] MEDS ORDERED: Sertraline 50 MG Tab PO SCH (08:00)
[2019-06-15] MEDS ORDERED: cefTRIAXone 1 GM in Sodium Chloride 0.9% 100 ML IV SCH (08:45)
[2019-06-15 08:52] LABS: HEMOGLOBIN A1C 6.6 % (4.3-5.7)
[2019-06-15] MEDS ORDERED: Sulfamethoxazole/Trimethoprim 800-160 MG Tab PO SCH (09:00)
[2019-06-15] MEDS ORDERED: Spironolactone 25 MG Tab PO SCH (09:45)
[2019-06-15] MEDS ORDERED: Aspirin 81 MG Tab.Chew CHEW ONE (09:59)
[2019-06-15] MEDS ORDERED: Heparin Sodium 5,000 Units/ML Vial IVPUSH ONE (09:59)
--- NOTE | 2019-06-15 10:10 | PCM.DCSUM1 ---
Discharge Summary - Hospital Course HPI Initial Comments: See emergency room note/admission H&P Brief History: See emergency room note/admission H&P Diagnosis: Stroke: No Modified Umbarger Scale: No Symptoms at All Modified Umbarger Scale Score: 0 - Discharge Data Discharge Date: 06/15/19 Discharge Disposition: DC/Tfer to Acute Hospital 02 Condition: Good - Referral to Home Health Primary Care Physician: PCP None - Discharge Diagnosis/Problem(s) (1) Chest pain SNOMED Code(s): 65896287 ICD Code: R07.9 - CHEST PAIN, UNSPECIFIED Status: Acute Priority: High Current Visit: Yes Onset Date: 06/14/19 Problem Details: Note that patient remained completely chest pain-free throughout this hospitalization with resolution chest pain shortly after only one sublingual nitroglycerin tablet was given as below. Note, however, that patient did have persistent elevated troponin I with otherwise normal CK, cardiac index and CK-MB. No Evidence of acute NE by serial EKGs and 2 during this hospitalization. Telephone consultation at 09:46 AM with Ede Taylor M.D., emergency room physician at [facility], who does accept the patient for further treatment, evaluation, cardiology consultation, etc.. Various therapeutic options were discussed with Dr. Taylor with 4 baby aspirin chew and swallow and 1 IV bolus of 4000 units of heparin given to the patient shortly after this consultation. Note recent epistaxis as below with mild beginning epistaxis in the left naris prior to transfer but no other significant bleeding. Chest pain protocol initiated in the emergency room upon patient's arrival. Note secondary to his recent epistaxis his aspirin and Brilinta were held initially, however. Chest pain completely resolved after one sublingual nitroglycerin tablet with additional nitroglycerin tablets and nitro-paste therapy initiated for blood pressure control and secondary to his previous distant history of angina per medical records. Initiated standard rule out NE orders. Cardiology consultation recommended as above. Note mild progressive renal insufficiency with heart catheterization with caution depending on his clinical course. Some delay in hospital transfer secondary to lack of ambulance availability, however no sequelae. Qualifiers: Chest pain type: precordial pain Qualified Code(s): R07.2 - Precordial pain (2) CHF (congestive heart failure) SNOMED Code(s): 61961446 ICD Code: I50.9 - HEART FAILURE, UNSPECIFIED Status: Acute Priority: High Current Visit: Yes Onset Date: 06/14/19 Problem Details: Consider Echocardiogram by accepting providers. IV Lasix therapy initiated in the emergency room with excellent results with further IV Lasix therapy during this hospitalization. Spironolactone was initiated prior to discharge secondary to persistent hypertension. Further medication adjustments by his accepting providers depending on his clinical course. Nitro paste therapy was continued. Patient is already on an WADE inhibitor. Qualifiers: Heart failure type: unspecified Heart failure chronicity: acute Qualified Code(s): I50.9 - Heart failure, unspecified (3) Hypertension SNOMED Code(s): 65365253 ICD Code: I10 - ESSENTIAL (PRIMARY) HYPERTENSION Status: Acute Priority: High Current Visit: Yes Problem Details: Blood pressures initially significantly improved shortly after admission including systolic blood pressures in the 120s as below. Some elevated blood pressures this morning with delay in patient receiving his morning medications. Additional spironolactone initiated this morning as above. Blood Pressures were refractory to medical therapy in the emergency room as above with aggressive therapy required, including IV labetalol, etc. as per the emergency room note. Qualifiers: Hypertension type: essential hypertension Qualified Code(s): I10 - Essential (primary) hypertension (4) Elevated lactic acid level SNOMED Code(s): 6160447 ICD Code: R79.89 - OTHER SPECIFIED ABNORMAL FINDINGS OF BLOOD CHEMISTRY Status: Acute Priority: High Current Visit: Yes Onset Date: 06/14/19 Problem Details: Initial improvement of patient's lactic acid level however some elevation today. Now suspect pneumonia based on chest x-ray on admission. Mild leukocytosis this morning. IV Rocephin therapy initiated prior to discharge. No fever, leukocytosis, or symptoms prior to admission. No known exposure to infection. No clinical evidence of sepsis, etc. No IV hydration/ fluids secondary to patient's CHF as above. (5) Diabetes mellitus SNOMED Code(s): 40796936 ICD Code: E11.9 - TYPE 2 DIABETES MELLITUS WITHOUT COMPLICATIONS Status: Chronic Priority: Medium Current Visit: Yes Problem Details: Elevated random glucose of admission with glycosylated hemoglobin of 6.6% on 06/15/19. Qualifiers: Diabetes mellitus type: type 2 Diabetes mellitus skilled nursing insulin use: without skilled nursing use Diabetes mellitus complication status: without complication Qualified Code(s): E11.9 - Type 2 diabetes mellitus without complications (6) Hyperlipidemia SNOMED Code(s): 90259258 ICD Code: E78.5 - HYPERLIPIDEMIA, UNSPECIFIED Status: Chronic Priority: Medium Current Visit: Yes Problem Details: Lipid panel this morning on shows persistent moderate dyslipidemia despite current medical therapy. Further medication adjustment by accepting providers. Weight loss in moderation advisable. Qualifiers: Hyperlipidemia type: mixed hyperlipidemia Qualified Code(s): E78.2 - Mixed hyperlipidemia (7) Hyperuricemia SNOMED Code(s): 08303737 ICD Code: E79.0 - HYPERURICEMIA W/O SIGNS OF INFLAM ARTHRIT AND TOPHACEOUS DIS Status: Acute Priority: Medium Current Visit: Yes Onset Date: Problem Details: Newly diagnosed. No recent history of gout attacks. Arthritis is otherwise been stable. Observe uric acid closely secondary to his IV Lasix therapy as above. (8) Mixed anxiety depressive disorder SNOMED Code(s): 133818188 ICD Code: F41.8 - OTHER SPECIFIED ANXIETY DISORDERS Status: Chronic Priority: Medium Current Visit: Yes Problem Details: Stable by history (9) Peptic reflux disease SNOMED Code(s): 143361820 ICD Code: K21.9 - GASTRO-ESOPHAGEAL REFLUX DISEASE WITHOUT ESOPHAGITIS Status: Chronic Priority: Medium Current Visit: Yes Problem Details: High- dose IV Pepcid therapy given as GI prophylaxis. Otherwise stable by history. (10) Renal insufficiency SNOMED Code(s): 930958584, 681073732 ICD Code: N28.9 - DISORDER OF KIDNEY AND URETER, UNSPECIFIED Status: Acute Priority: Medium Current Visit: Yes Onset Date: 06/14/19 Problem Details: Newly diagnosed possible diabetic nephropathy. Urine for Microalbumin has been ordered. Note refractory hypertension as above with workup for renal artery stenosis depending on his clinical course. Note history of significant carotid occlusive disease. Continue WADE inhibitor therapy with caution for now. Continue to observe closely secondary to IV Lasix therapy. Mild progressive creatinine elevation today secondary to his therapy, however. (11) Epistaxis SNOMED Code(s): 679648817 ICD Code: R04.0 - EPISTAXIS Status: Acute Priority: Medium Current Visit: Yes Onset Date: 06/14/19 Problem Details: Controlled with Rhino Rocket as above. Continue to observe for now. (12) Anemia SNOMED Code(s): 005535390 ICD Code: D64.9 - ANEMIA, UNSPECIFIED Status: Acute Priority: Medium Current Visit: Yes Onset Date: 06/14/19 Problem Details: Note newly diagnosed renal insufficiency and recent epistaxis. Observe for now. Qualifiers: Anemia type: unspecified type Qualified Code(s): D64.9 - Anemia, unspecified (13) COPD (chronic obstructive pulmonary disease) SNOMED Code(s): 78143821 ICD Code: J44.9 - CHRONIC OBSTRUCTIVE PULMONARY DISEASE, UNSPECIFIED Status : Acute Priority: Medium Current Visit: Yes Onset Date: 06/14/19 Problem Details: Note history of tobacco use. COPD by chest x-ray. Consider PFTs once his cardiac status, etc. has improved. Qualifiers: COPD type: emphysema Emphysema type: panlobular Qualified Code(s): J43.1 - Panlobular emphysema (14) Headache SNOMED Code(s): 03256443 ICD Code: R51 - HEADACHE Status: Acute Priority: High Current Visit: Yes Onset Date: 06/14/19 Problem Details: As above. Improved during this hospitalization however mild persistent headache today. Qualifiers: Headache type: unspecified Headache chronicity pattern: acute headache Intractability: not intractable Qualified Code(s): R51 - Headache (15) Hypomagnesemia SNOMED Code(s): 085097590 ICD Code: E83.42 - HYPOMAGNESEMIA Status: Acute Priority: Medium Current Visit: Yes Onset Date: 06/14/19 Problem Details: Initiated magnesium oxide therapy this morning. Magnesium sulfate grams IV given yesterday for his headache and blood pressure control. (16) Pneumonia SNOMED Code(s): 456476598 ICD Code: J18.9 - PNEUMONIA, UNSPECIFIED ORGANISM Status: Acute Priority : High Current Visit: Yes Onset Date: ~06/14/19 Problem Details: As above. Sputum could not be obtained during this hospitalization. Consider blood cultures depending on his clinical course. Qualifiers: Pneumonia type: due to unspecified organism Laterality: right Lung location: middle lobe of lung Qualified Code(s): J18.9 - Pneumonia, unspecified organism - Patient Summary/Data Complications: None Consults: Emergency room physician as above. Labs Pending at D/C: 1. Urine for microalbumin. 2. Final chest x-ray report from 06/14/18 3. Urine Culture and sensitivity. Recommended Follow-up Testing/Procedures: Ambulance transfer with wellhead pumper accompaniment. Hospital Course: The patient was admitted to acute care with close observation of his cardiac status, blood pressure, etc.. No recurrence of his chest pain and significantly improved blood pressures during this hospitalizations as above. Excellent response to aggressive IV diuresis and change of his medications as above. Secondary to concerns of possible beginning unstable angina hospital transfer was warrented, however. Probable beginning right middle lobe concomitant pneumonia without direct evidence of sepsis or COPD exacerbation. Ambulance transfer with wellhead pumper accompaniment as above. - Patient Instructions Diet: NPO Activity: Bedrest, May Use Bathroom Driving: Do Not Drive Showering/Bathing: No Showering Notify Provider of: Increased Pain, Nausea and/or Vomiting - Discharge Plan *PRESCRIPTION DRUG MONITORING PROGRAM REVIEWED*: Not Applicable *COPY OF PRESCRIPTION DRUG MONITORING REPORT IN PATIENT ROMULO: Not Applicable Home Medications: Home Meds Aspirin [Ecotrin] 325 mg PO DAILY 09/04/15 [History] Lisinopril 40 mg PO DAILY #30 tablet 10/22/15 [Rx] Cyanocobalamin (Vitamin B-12) [Vitamin B-12] 1 tab PO DAILY 11/14/15 [History] Gabapentin [Neurontin] 100 mg PO DAILY 11/14/15 [History] Acetaminophen [Tylenol] 650 mg PO Q6H PRN 06/14/19 [History] Furosemide [Lasix] 40 mg PO DAILY 06/14/19 [History] Metoprolol Tartrate 50 mg PO BID 06/14/19 [History] Sertraline [Zoloft] 50 mg PO DAILY 06/14/19 [History] Oxygen Therapy Mode: Room Air Forms: ED Department Discharge, Interfacility Transfer EMTALA Referrals: PCP,None [Primary Care Provider] - - Discharge Summary/Plan Comment DC Time >30 min.: Yes (Coordination of care ) Discharge Summary/Plan Comment: As above. Extensive precautions were given to the patient, who is in agreement with the treatment plan. Ambulance transfer with wellhead pumper accompaniment. - General Info Date of Service: 06/15/19 Admission Dx/Problem (Free Text: 1. CHF 2. Coronary artery disease 3. Hypertension Functional Status: Reports: Pain Controlled, Tolerating Diet, Ambulating, Urinating, Incentive Spirometry. Denies: New Symptoms Numeric/FACES Score: 4 (Bilateral frontal headache) - Review of Systems General: Reports: No Symptoms. Denies: Fever, Weakness, Chills, Night Sweats, Appetite HEENT: Reports: Glasses, Other (Right sided epistaxis improved with Rhino Rocket with borderline beginning mild left epistaxis). Denies: Dysphasia, Ear Pain, Eye Pain, Headaches, Sinus Congestion, Sore Throat, Rhinitis Pulmonary: Reports: No Symptoms. Denies: Shortness of Breath, Pleuritic Chest Pain, Cough, Sputum, Hemoptysis, Wheezing Cardiovascular: Reports: Edema (Improved). Denies: Chest Pain, Palpitations, Dyspnea on Exertion, Orthopnea, Lightheadedness Gastrointestinal: Reports: No Symptoms, Other (No bowel movement since admission ). Denies: Abdominal Pain, Constipation, Decreased Appetite, Diarrhea, Difficulty Swallowing, Flatus, Hematochezia, Melena, Nausea, Vomiting Genitourinary: Reports: No Symptoms. Denies: Dysuria, Frequency, Burning, Pain , Urgency, Hematuria, Retention, Flank Pain, Other Musculoskeletal: Reports: No Symptoms. Denies: Neck Pain, Shoulder Pain, Arm Pain, Back Pain, Leg Pain Skin: Reports: No Symptoms. Denies: Diaphoresis, Bruising Neurological: Reports: Headache. Denies: Confusion, Dizziness, Numbness, Paresthesia, Pre-Existing Deficit, Tingling, Weakness Psychiatric: Reports: No Symptoms. Denies: Confusion, Depression, Anxiety, Agitation, Cravings - Patient Data Vitals - Most Recent: Last Vital Signs Temp 37.1 C 06/15/19 06:00 Pulse 81 06/15/19 04:00 Resp 12 06/15/19 06:00 BP 172/86 H 06/15/19 06:00 Pulse Ox 96 06/15/19 06:00 Vital Signs - 24 hr 06/14/19 06/14/19 06/14/19 17:46 17:52 17:56 Temperature [ Oral] Temperature [ 36.7 C Temporal] Pulse, Peripheral Pulse, 91 94 Peripheral [ Left Pulse Oximetry] Respiratory 16 Rate Blood Pressure Blood Pressure 211/77 H 225/106 H [Left Upper Arm ] O2 Sat by Pulse 96 Oximetry O2 Sat by Pulse 87 L Oximetry [Room Air] 06/14/19 06/14/19 06/14/19 17:57 18:15 18:24 Temperature [ Oral] Temperature [ Temporal] Pulse, Peripheral Pulse, 87 Peripheral [ Left Pulse Oximetry] Respiratory 14 Rate Blood Pressure 225/106 H 180/78 H Blood Pressure 177/73 H [Left Upper Arm ] O2 Sat by Pulse 95 Oximetry O2 Sat by Pulse Oximetry [Room Air] 06/14/19 06/14/19 06/14/19 19:00 19:15 19:30 Temperature [ Oral] Temperature [ Temporal] Pulse, Peripheral Pulse, 80 80 84 Peripheral [ Left Pulse Oximetry] Respiratory 12 13 14 Rate Blood Pressure Blood Pressure 199/81 H 205/73 H 185/67 H [Left Upper Arm ] O2 Sat by Pulse 94 L 94 L 94 L Oximetry O2 Sat by Pulse Oximetry [Room Air] 06/14/19 06/14/19 06/14/19 19:40 19:50 20:27 Temperature [ Oral] Temperature [ 36.8 C Temporal] Pulse, Peripheral Pulse, 85 80 81 Peripheral [ Left Pulse Oximetry] Respiratory 13 16 16 Rate Blood Pressure Blood Pressure 163/73 H 169/73 H 162/70 H [Left Upper Arm ] O2 Sat by Pulse 95 96 95 Oximetry O2 Sat by Pulse Oximetry [Room Air] 06/14/19 06/15/19 06/15/19 22:00 00:00 02:00 Temperature [ 37.4 C 36.9 C Oral] Temperature [ 36.9 C Temporal] Pulse, Peripheral Pulse, 81 84 81 Peripheral [ Left Pulse Oximetry] Respiratory 14 14 12 Rate Blood Pressure Blood Pressure 129/54 L 130/56 L 160/67 H [Left Upper Arm ] O2 Sat by Pulse 94 L 92 L 95 Oximetry O2 Sat by Pulse Oximetry [Room Air] 06/15/19 06/15/19 06/15/19 04:00 06:00 10:07 Temperature [ Oral] Temperature [ 36.8 C 37.1 C Temporal] Pulse, 70 Peripheral Pulse, 81 Peripheral [ Left Pulse Oximetry] Respiratory 12 12 Rate Blood Pressure 167/67 H Blood Pressure 172/68 H 172/86 H [Left Upper Arm ] O2 Sat by Pulse 96 96 Oximetry O2 Sat by Pulse Oximetry [Room Air] 06/15/19 10:08 Temperature [ Oral] Temperature [ Temporal] Pulse, Peripheral Pulse, Peripheral [ Left Pulse Oximetry] Respiratory Rate Blood Pressure 167/65 H Blood Pressure [Left Upper Arm ] O2 Sat by Pulse Oximetry O2 Sat by Pulse Oximetry [Room Air] Weight - Most Recent: 119.748 kg I&O - Last 24 hours: Intake & Output 06/14/19 06/15/19 06/15/19 22:59 06:59 14:59 Output Total 600 Balance -600 Imaging Impressions - Last 24 hrs: Radial [employer] shows normal sinus rhythm in the 80s with no ectopy or arrhythmia. Chest X-ray, portable, on 06/14/19 shows evidence of borderline right middle lobe pulmonary infiltrates versus atelectasis with mild mostly centralized CHF. Possible pulmonary hypertension. No pneumothorax Lab Results - Last 24 hrs: Laboratory Results - last 24 hr 06/14/19 06/14/19 06/14/19 Range/Units 10:05 18:04 18:04 WBC 8.8 (4.0-10.2) K/uL RBC 3.69 L (4.33-5.41) M/uL Hgb 12.6 L D (13.1-16.8) g/dL Hct 36.2 L (39.0-49.0) % MCV 98.1 H D (84.0-98.0) fL MCH 34.1 H (28.2-33.3) pg MCHC 34.8 (31.7-36.0) g/dL RDW 14.6 H (11.2-14.1) % Plt Count 201 (150-350) K/uL Neut % (Auto) 68.9 (45.0-80.0) % Lymph % (Auto) 20.8 (10.0-50.0) % [place] % (Auto) 8.4 (2.0-14.0) % Eos % (Auto) 1.3 (0.0-5.0) % Baso % (Auto) 0.6 (0.0-2.0) % Neut # (Auto) 6.07 (1.40-7.00) K/uL Lymph # (Auto) 1.83 (0.50-3.50) K/uL [place] # (Auto) 0.74 (0.00-1.00) K/uL Eos # (Auto) 0.11 (0.00-0.50) K/uL Baso # (Auto) 0.05 (0.00-0.20) K/uL PT 9.9 (9.5-12.0) SEC INR 1.0 APTT 25.8 (21.0-31.3) SEC D-Dimer, Quantitative (0-400) ng/mL Sodium (136-145) mmol/L Potassium (3.5-5.1) mmol/L Chloride (98-107) mmol/L Carbon Dioxide (21.0-32.0) mmol/L BUN (7-18) mg/dL Creatinine (0.51-1.17) mg/dL Est Cr Clr Drug Dosing Estimated GFR (MDRD) mL/min Glucose (74-106) mg/dL Hemoglobin A1c (4.3-5.7) % Lactic Acid (0.4-2.0) mmol/L Uric Acid (2.6-7.2) mg/dL Calcium (8.5-10.1) mg/dL Magnesium (1.8-2.4) mg/dL Total Bilirubin (0.2-1.0) mg/dL AST (15-37) U/L ALT (12-78) U/L Alkaline Phosphatase (46-116) IU/L Creatine Kinase 121 (26-308) U/L Creatine Kinase Index 1.6 (0.0-2.5) % CK-MB (CK-2) 1.90 (0.00-3.60) ng/mL Troponin I 0.083 H* (0.000-0.056) ng/mL NT-Pro-B Natriuret Pep (0-125) pg/mL Total Protein (6.4-8.2) g/dL Albumin (3.4-5.0) g/dL Triglycerides (30-150) mg/dL Cholesterol (100-200) mg/dL LDL Cholesterol, Calc (0-100) mg/dL HDL Cholesterol (40-60) mg/dL TSH, Ultra Sensitive (0.358-3.740) mIU/mL Specimen Type Urine Color Urine Appearance Urine pH (5.0-9.0) Ur Specific [place] (1.005-1.030) Urine Protein (NEGATIVE) mg/dL Urine Glucose (UA) (NEGATIVE) mg/dL Urine Ketones (NEGATIVE) mg/dL Urine Occult Blood (NEGATIVE) Urine Nitrite (NEGATIVE) Urine Bilirubin (NEGATIVE) Urine Urobilinogen (0.2-1.0) E.U./dL Ur Leukocyte Esterase (NEGATIVE) U Hyaline Cast (Auto) Urine RBC /HPF Urine WBC /HPF Ur Epithelial Cells /LPF Urine Bacteria (NONE TO FEW) /HPF Urine Other 06/14/19 06/14/19 06/14/19 Range/Units 18:04 18:04 18:04 WBC (4.0-10.2) K/uL RBC (4.33-5.41) M/uL Hgb (13.1-16.8) g/dL Hct (39.0-49.0) % MCV (84.0-98.0) fL MCH (28.2-33.3) pg MCHC (31.7-36.0) g/dL RDW (11.2-14.1) % Plt Count (150-350) K/uL Neut % (Auto) (45.0-80.0) % Lymph % (Auto) (10.0-50.0) % [place] % (Auto) (2.0-14.0) % Eos % (Auto) (0.0-5.0) % Baso % (Auto) (0.0-2.0) % Neut # (Auto) (1.40-7.00) K/uL Lymph # (Auto) (0.50-3.50) K/uL [place] # (Auto) (0.00-1.00) K/uL Eos # (Auto) (0.00-0.50) K/uL Baso # (Auto) (0.00-0.20) K/uL PT (9.5-12.0) SEC INR APTT (21.0-31.3) SEC D-Dimer, Quantitative 124 (0-400) ng/mL Sodium 140 (136-145) mmol/L Potassium 4.2 (3.5-5.1) mmol/L Chloride 103 (98-107) mmol/L Carbon Dioxide 27.5 (21.0-32.0) mmol/L BUN 18 (7-18) mg/dL Creatinine 1.61 H (0.51-1.17) mg/dL Est Cr Clr Drug Dosing TNP Estimated GFR (MDRD) 43 mL/min Glucose 215 H (74-106) mg/dL Hemoglobin A1c (4.3-5.7) % Lactic Acid 2.8 H (0.4-2.0) mmol/L Uric Acid 8.5 H (2.6-7.2) mg/dL Calcium 8.7 (8.5-10.1) mg/dL Magnesium 1.7 L (1.8-2.4) mg/dL Total Bilirubin 0.4 (0.2-1.0) mg/dL AST 22 (15-37) U/L ALT 36 (12-78) U/L Alkaline Phosphatase 60 (46-116) IU/L Creatine Kinase 133 (26-308) U/L Creatine Kinase Index 1.6 (0.0-2.5) % CK-MB (CK-2) 2.10 (0.00-3.60) ng/mL Troponin I 0.064 H* (0.000-0.056) ng/mL NT-Pro-B Natriuret Pep 1431 H (0-125) pg/mL Total Protein 6.9 (6.4-8.2) g/dL Albumin 3.6 (3.4-5.0) g/dL Triglycerides (30-150) mg/dL Cholesterol (100-200) mg/dL LDL Cholesterol, Calc (0-100) mg/dL HDL Cholesterol (40-60) mg/dL TSH, Ultra Sensitive 1.987 (0.358-3.740) mIU/mL Specimen Type Urine Color Urine Appearance Urine pH (5.0-9.0) Ur Specific [place] (1.005-1.030) Urine Protein (NEGATIVE) mg/dL Urine Glucose (UA) (NEGATIVE) mg/dL Urine Ketones (NEGATIVE) mg/dL Urine Occult Blood (NEGATIVE) Urine Nitrite (NEGATIVE) Urine Bilirubin (NEGATIVE) Urine Urobilinogen (0.2-1.0) E.U./dL Ur Leukocyte Esterase (NEGATIVE) U Hyaline Cast (Auto) Urine RBC /HPF Urine WBC /HPF Ur Epithelial Cells /LPF Urine Bacteria (NONE TO FEW) /HPF Urine Other 06/14/19 06/14/19 06/15/19 Range/Units 22:05 23:55 07:30 WBC 10.3 H (4.0-10.2) K/uL RBC 3.74 L (4.33-5.41) M/uL Hgb 12.4 L (13.1-16.8) g/dL Hct 37.7 L (39.0-49.0) % MCV 100.8 H (84.0-98.0) fL MCH 33.2 (28.2-33.3) pg MCHC 32.9 (31.7-36.0) g/dL RDW 14.8 H (11.2-14.1) % Plt Count 208 (150-350) K/uL Neut % (Auto) 71.9 (45.0-80.0) % Lymph % (Auto) 17.3 (10.0-50.0) % [place] % (Auto) 10.0 (2.0-14.0) % Eos % (Auto) 0.4 (0.0-5.0) % Baso % (Auto) 0.4 (0.0-2.0) % Neut # (Auto) 7.43 H (1.40-7.00) K/uL Lymph # (Auto) 1.79 (0.50-3.50) K/uL [place] # (Auto) 1.03 H (0.00-1.00) K/uL Eos # (Auto) 0.04 (0.00-0.50) K/uL Baso # (Auto) 0.04 (0.00-0.20) K/uL PT (9.5-12.0) SEC INR APTT (21.0-31.3) SEC D-Dimer, Quantitative (0-400) ng/mL Sodium (136-145) mmol/L Potassium (3.5-5.1) mmol/L Chloride (98-107) mmol/L Carbon Dioxide (21.0-32.0) mmol/L BUN (7-18) mg/dL Creatinine (0.51-1.17) mg/dL Est Cr Clr Drug Dosing Estimated GFR (MDRD) mL/min Glucose (74-106) mg/dL Hemoglobin A1c (4.3-5.7) % Lactic Acid 2.2 H (0.4-2.0) mmol/L Uric Acid (2.6-7.2) mg/dL Calcium (8.5-10.1) mg/dL Magnesium (1.8-2.4) mg/dL Total Bilirubin (0.2-1.0) mg/dL AST (15-37) U/L ALT (12-78) U/L Alkaline Phosphatase (46-116) IU/L Creatine Kinase (26-308) U/L Creatine Kinase Index (0.0-2.5) % CK-MB (CK-2) (0.00-3.60) ng/mL Troponin I (0.000-0.056) ng/mL NT-Pro-B Natriuret Pep (0-125) pg/mL Total Protein (6.4-8.2) g/dL Albumin (3.4-5.0) g/dL Triglycerides (30-150) mg/dL Cholesterol (100-200) mg/dL LDL Cholesterol, Calc (0-100) mg/dL HDL Cholesterol (40-60) mg/dL TSH, Ultra Sensitive (0.358-3.740) mIU/mL Specimen Type Urincc Urine Color Yellow Urine Appearance Clear Urine pH 6.0 (5.0-9.0) Ur Specific [place] 1.015 (1.005-1.030) Urine Protein 100 H (NEGATIVE) mg/dL Urine Glucose (UA) Negative (NEGATIVE) mg/dL Urine Ketones Negative (NEGATIVE) mg/dL Urine Occult Blood Negative (NEGATIVE) Urine Nitrite Negative (NEGATIVE) Urine Bilirubin Negative (NEGATIVE) Urine Urobilinogen 0.2 (0.2-1.0) E.U./dL Ur Leukocyte Esterase Negative (NEGATIVE) U Hyaline Cast (Auto) Rare Urine RBC 0-5 /HPF Urine WBC 0-5 /HPF Ur Epithelial Cells Rare /LPF Urine Bacteria Not seen (NONE TO FEW) /HPF Urine Other See note H 06/15/19 06/15/19 06/15/19 Range/Units 07:30 07:30 07:30 WBC (4.0-10.2) K/uL RBC (4.33-5.41) M/uL Hgb (13.1-16.8) g/dL Hct (39.0-49.0) % MCV (84.0-98.0) fL MCH (28.2-33.3) pg MCHC (31.7-36.0) g/dL RDW (11.2-14.1) % Plt Count (150-350) K/uL Neut % (Auto) (45.0-80.0) % Lymph % (Auto) (10.0-50.0) % [place] % (Auto) (2.0-14.0) % Eos % (Auto) (0.0-5.0) % Baso % (Auto) (0.0-2.0) % Neut # (Auto) (1.40-7.00) K/uL Lymph # (Auto) (0.50-3.50) K/uL [place] # (Auto) (0.00-1.00) K/uL Eos # (Auto) (0.00-0.50) K/uL Baso # (Auto) (0.00-0.20) K/uL PT (9.5-12.0) SEC INR APTT (21.0-31.3) SEC D-Dimer, Quantitative (0-400) ng/mL Sodium 140 (136-145) mmol/L Potassium 4.5 (3.5-5.1) mmol/L Chloride 102 (98-107) mmol/L Carbon Dioxide 29.9 (21.0-32.0) mmol/L BUN 19 H (7-18) mg/dL Creatinine 1.91 H (0.51-1.17) mg/dL Est Cr Clr Drug Dosing 38.75 Estimated GFR (MDRD) 35 mL/min Glucose 190 H (74-106) mg/dL Hemoglobin A1c 6.6 H (4.3-5.7) % Lactic Acid 3.1 H (0.4-2.0) mmol/L Uric Acid (2.6-7.2) mg/dL Calcium 9.0 (8.5-10.1) mg/dL Magnesium (1.8-2.4) mg/dL Total Bilirubin 0.6 (0.2-1.0) mg/dL AST 19 (15-37) U/L ALT 33 (12-78) U/L Alkaline Phosphatase 57 (46-116) IU/L Creatine Kinase 96 (26-308) U/L Creatine Kinase Index 1.7 (0.0-2.5) % CK-MB (CK-2) 1.60 (0.00-3.60) ng/mL Troponin I 0.077 H* (0.000-0.056) ng/mL NT-Pro-B Natriuret Pep (0-125) pg/mL Total Protein 7.0 (6.4-8.2) g/dL Albumin 3.5 (3.4-5.0) g/dL Triglycerides 189 H (30-150) mg/dL Cholesterol 226 H (100-200) mg/dL LDL Cholesterol, Calc 154 H (0-100) mg/dL HDL Cholesterol 34 L (40-60) mg/dL TSH, Ultra Sensitive (0.358-3.740) mIU/mL Specimen Type Urine Color Urine Appearance Urine pH (5.0-9.0) Ur Specific [place] (1.005-1.030) Urine Protein (NEGATIVE) mg/dL Urine Glucose (UA) (NEGATIVE) mg/dL Urine Ketones (NEGATIVE) mg/dL Urine Occult Blood (NEGATIVE) Urine Nitrite (NEGATIVE) Urine Bilirubin (NEGATIVE) Urine Urobilinogen (0.2-1.0) E.U./dL Ur Leukocyte Esterase (NEGATIVE) U Hyaline Cast (Auto) Urine RBC /HPF Urine WBC /HPF Ur Epithelial Cells /LPF Urine Bacteria (NONE TO FEW) /HPF Urine Other Laboratory Tests 06/14/19 06/14/19 06/14/19 Range/Units 10:05 18:04 18:04 WBC 8.8 (4.0-10.2) K/uL RBC 3.69 L (4.33-5.41) M/uL Hgb 12.6 L D (13.1-16.8) g/dL Hct 36.2 L (39.0-49.0) % MCV 98.1 H D (84.0-98.0) fL MCH 34.1 H (28.2-33.3) pg MCHC 34.8 (31.7-36.0) g/dL RDW 14.6 H (11.2-14.1) % Plt Count 201 (150-350) K/uL Neut % (Auto) 68.9 (45.0-80.0) % Lymph % (Auto) 20.8 (10.0-50.0) % [place] % (Auto) 8.4 (2.0-14.0) % Eos % (Auto) 1.3 (0.0-5.0) % Baso % (Auto) 0.6 (0.0-2.0) % Neut # (Auto) 6.07 (1.40-7.00) K/uL Lymph # (Auto) 1.83 (0.50-3.50) K/uL [place] # (Auto) 0.74 (0.00-1.00) K/uL Eos # (Auto) 0.11 (0.00-0.50) K/uL Baso # (Auto) 0.05 (0.00-0.20) K/uL PT 9.9 (9.5-12.0) SEC INR 1.0 APTT 25.8 (21.0-31.3) SEC D-Dimer, Quantitative (0-400) ng/mL Sodium (136-145) mmol/L Potassium (3.5-5.1) mmol/L Chloride (98-107) mmol/L Carbon Dioxide (21.0-32.0) mmol/L BUN (7-18) mg/dL Creatinine (0.51-1.17) mg/dL Est Cr Clr Drug Dosing Estimated GFR (MDRD) mL/min Glucose (74-106) mg/dL Hemoglobin A1c (4.3-5.7) % Lactic Acid (0.4-2.0) mmol/L Uric Acid (2.6-7.2) mg/dL Calcium (8.5-10.1) mg/dL Magnesium (1.8-2.4) mg/dL Total Bilirubin (0.2-1.0) mg/dL AST (15-37) U/L ALT (12-78) U/L Alkaline Phosphatase (46-116) IU/L Creatine Kinase 121 (26-308) U/L Creatine Kinase Index 1.6 (0.0-2.5) % CK-MB (CK-2) 1.90 (0.00-3.60) ng/mL Troponin I 0.083 H* (0.000-0.056) ng/mL NT-Pro-B Natriuret Pep (0-125) pg/mL Total Protein (6.4-8.2) g/dL Albumin (3.4-5.0) g/dL Triglycerides (30-150) mg/dL Cholesterol (100-200) mg/dL LDL Cholesterol, Calc (0-100) mg/dL HDL Cholesterol (40-60) mg/dL TSH, Ultra Sensitive (0.358-3.740) mIU/mL Specimen Type Urine Color Urine Appearance Urine pH (5.0-9.0) Ur Specific [place] (1.005-1.030) Urine Protein (NEGATIVE) mg/dL Urine Glucose (UA) (NEGATIVE) mg/dL Urine Ketones (NEGATIVE) mg/dL Urine Occult Blood (NEGATIVE) Urine Nitrite (NEGATIVE) Urine Bilirubin (NEGATIVE) Urine Urobilinogen (0.2-1.0) E.U./dL Ur Leukocyte Esterase (NEGATIVE) U Hyaline Cast (Auto) Urine RBC /HPF Urine WBC /HPF Ur Epithelial Cells /LPF Urine Bacteria (NONE TO FEW) /HPF Urine Other 06/14/19 06/14/19 06/14/19 Range/Units 18:04 18:04 18:04 WBC (4.0-10.2) K/uL RBC (4.33-5.41) M/uL Hgb (13.1-16.8) g/dL Hct (39.0-49.0) % MCV (84.0-98.0) fL MCH (28.2-33.3) pg MCHC (31.7-36.0) g/dL RDW (11.2-14.1) % Plt Count (150-350) K/uL Neut % (Auto) (45.0-80.0) % Lymph % (Auto) (10.0-50.0) % [place] % (Auto) (2.0-14.0) % Eos % (Auto) (0.0-5.0) % Baso % (Auto) (0.0-2.0) % Neut # (Auto) (1.40-7.00) K/uL Lymph # (Auto) (0.50-3.50) K/uL [place] # (Auto) (0.00-1.00) K/uL Eos # (Auto) (0.00-0.50) K/uL Baso # (Auto) (0.00-0.20) K/uL PT (9.5-12.0) SEC INR APTT (21.0-31.3) SEC D-Dimer, Quantitative 124 (0-400) ng/mL Sodium 140 (136-145) mmol/L Potassium 4.2 (3.5-5.1) mmol/L Chloride 103 (98-107) mmol/L Carbon Dioxide 27.5 (21.0-32.0) mmol/L BUN 18 (7-18) mg/dL Creatinine 1.61 H (0.51-1.17) mg/dL Est Cr Clr Drug Dosing TNP Estimated GFR (MDRD) 43 mL/min Glucose 215 H (74-106) mg/dL Hemoglobin A1c (4.3-5.7) % Lactic Acid 2.8 H (0.4-2.0) mmol/L Uric Acid 8.5 H (2.6-7.2) mg/dL Calcium 8.7 (8.5-10.1) mg/dL Magnesium 1.7 L (1.8-2.4) mg/dL Total Bilirubin 0.4 (0.2-1.0) mg/dL AST 22 (15-37) U/L ALT 36 (12-78) U/L Alkaline Phosphatase 60 (46-116) IU/L Creatine Kinase 133 (26-308) U/L Creatine Kinase Index 1.6 (0.0-2.5) % CK-MB (CK-2) 2.10 (0.00-3.60) ng/mL Troponin I 0.064 H* (0.000-0.056) ng/mL NT-Pro-B Natriuret Pep 1431 H (0-125) pg/mL Total Protein 6.9 (6.4-8.2) g/dL Albumin 3.6 (3.4-5.0) g/dL Triglycerides (30-150) mg/dL Cholesterol (100-200) mg/dL LDL Cholesterol, Calc (0-100) mg/dL HDL Cholesterol (40-60) mg/dL TSH, Ultra Sensitive 1.987 (0.358-3.740) mIU/mL Specimen Type Urine Color Urine Appearance Urine pH (5.0-9.0) Ur Specific [place] (1.005-1.030) Urine Protein (NEGATIVE) mg/dL Urine Glucose (UA) (NEGATIVE) mg/dL Urine Ketones (NEGATIVE) mg/dL Urine Occult Blood (NEGATIVE) Urine Nitrite (NEGATIVE) Urine Bilirubin (NEGATIVE) Urine Urobilinogen (0.2-1.0) E.U./dL Ur Leukocyte Esterase (NEGATIVE) U Hyaline Cast (Auto) Urine RBC /HPF Urine WBC /HPF Ur Epithelial Cells /LPF Urine Bacteria (NONE TO FEW) /HPF Urine Other 06/14/19 06/14/19 06/15/19 Range/Units 22:05 23:55 07:30 WBC 10.3 H (4.0-10.2) K/uL RBC 3.74 L (4.33-5.41) M/uL Hgb 12.4 L (13.1-16.8) g/dL Hct 37.7 L (39.0-49.0) % MCV 100.8 H (84.0-98.0) fL MCH 33.2 (28.2-33.3) pg MCHC 32.9 (31.7-36.0) g/dL RDW 14.8 H (11.2-14.1) % Plt Count 208 (150-350) K/uL Neut % (Auto) 71.9 (45.0-80.0) % Lymph % (Auto) 17.3 (10.0-50.0) % [place] % (Auto) 10.0 (2.0-14.0) % Eos % (Auto) 0.4 (0.0-5.0) % Baso % (Auto) 0.4 (0.0-2.0) % Neut # (Auto) 7.43 H (1.40-7.00) K/uL Lymph # (Auto) 1.79 (0.50-3.50) K/uL [place] # (Auto) 1.03 H (0.00-1.00) K/uL Eos # (Auto) 0.04 (0.00-0.50) K/uL Baso # (Auto) 0.04 (0.00-0.20) K/uL PT (9.5-12.0) SEC INR APTT (21.0-31.3) SEC D-Dimer, Quantitative (0-400) ng/mL Sodium (136-145) mmol/L Potassium (3.5-5.1) mmol/L Chloride (98-107) mmol/L Carbon Dioxide (21.0-32.0) mmol/L BUN (7-18) mg/dL Creatinine (0.51-1.17) mg/dL Est Cr Clr Drug Dosing Estimated GFR (MDRD) mL/min Glucose (74-106) mg/dL Hemoglobin A1c (4.3-5.7) % Lactic Acid 2.2 H (0.4-2.0) mmol/L Uric Acid (2.6-7.2) mg/dL Calcium (8.5-10.1) mg/dL Magnesium (1.8-2.4) mg/dL Total Bilirubin (0.2-1.0) mg/dL AST (15-37) U/L ALT (12-78) U/L Alkaline Phosphatase (46-116) IU/L Creatine Kinase (26-308) U/L Creatine Kinase Index (0.0-2.5) % CK-MB (CK-2) (0.00-3.60) ng/mL Troponin I (0.000-0.056) ng/mL NT-Pro-B Natriuret Pep (0-125) pg/mL Total Protein (6.4-8.2) g/dL Albumin (3.4-5.0) g/dL Triglycerides (30-150) mg/dL Cholesterol (100-200) mg/dL LDL Cholesterol, Calc (0-100) mg/dL HDL Cholesterol (40-60) mg/dL TSH, Ultra Sensitive (0.358-3.740) mIU/mL Specimen Type Urincc Urine Color Yellow Urine Appearance Clear Urine pH 6.0 (5.0-9.0) Ur Specific [place] 1.015 (1.005-1.030) Urine Protein 100 H (NEGATIVE) mg/dL Urine Glucose (UA) Negative (NEGATIVE) mg/dL Urine Ketones Negative (NEGATIVE) mg/dL Urine Occult Blood Negative (NEGATIVE) Urine Nitrite Negative (NEGATIVE) Urine Bilirubin Negative (NEGATIVE) Urine Urobilinogen 0.2 (0.2-1.0) E.U./dL Ur Leukocyte Esterase Negative (NEGATIVE) U Hyaline Cast (Auto) Rare Urine RBC 0-5 /HPF Urine WBC 0-5 /HPF Ur Epithelial Cells Rare /LPF Urine Bacteria Not seen (NONE TO FEW) /HPF Urine Other See note H 06/15/19 06/15/19 06/15/19 Range/Units 07:30 07:30 07:30 WBC (4.0-10.2) K/uL RBC (4.33-5.41) M/uL Hgb (13.1-16.8) g/dL Hct (39.0-49.0) % MCV (84.0-98.0) fL MCH (28.2-33.3) pg MCHC (31.7-36.0) g/dL RDW (11.2-14.1) % Plt Count (150-350) K/uL Neut % (Auto) (45.0-80.0) % Lymph % (Auto) (10.0-50.0) % [place] % (Auto) (2.0-14.0) % Eos % (Auto) (0.0-5.0) % Baso % (Auto) (0.0-2.0) % Neut # (Auto) (1.40-7.00) K/uL Lymph # (Auto) (0.50-3.50) K/uL [place] # (Auto) (0.00-1.00) K/uL Eos # (Auto) (0.00-0.50) K/uL Baso # (Auto) (0.00-0.20) K/uL PT (9.5-12.0) SEC INR APTT (21.0-31.3) SEC D-Dimer, Quantitative (0-400) ng/mL Sodium 140 (136-145) mmol/L Potassium 4.5 (3.5-5.1) mmol/L Chloride 102 (98-107) mmol/L Carbon Dioxide 29.9 (21.0-32.0) mmol/L BUN 19 H (7-18) mg/dL Creatinine 1.91 H (0.51-1.17) mg/dL Est Cr Clr Drug Dosing 38.75 Estimated GFR (MDRD) 35 mL/min Glucose 190 H (74-106) mg/dL Hemoglobin A1c 6.6 H (4.3-5.7) % Lactic Acid 3.1 H (0.4-2.0) mmol/L Uric Acid (2.6-7.2) mg/dL Calcium 9.0 (8.5-10.1) mg/dL Magnesium (1.8-2.4) mg/dL Total Bilirubin 0.6 (0.2-1.0) mg/dL AST 19 (15-37) U/L ALT 33 (12-78) U/L Alkaline Phosphatase 57 (46-116) IU/L Creatine Kinase 96 (26-308) U/L Creatine Kinase Index 1.7 (0.0-2.5) % CK-MB (CK-2) 1.60 (0.00-3.60) ng/mL Troponin I 0.077 H* (0.000-0.056) ng/mL NT-Pro-B Natriuret Pep (0-125) pg/mL Total Protein 7.0 (6.4-8.2) g/dL Albumin 3.5 (3.4-5.0) g/dL Triglycerides 189 H (30-150) mg/dL Cholesterol 226 H (100-200) mg/dL LDL Cholesterol, Calc 154 H (0-100) mg/dL HDL Cholesterol 34 L (40-60) mg/dL TSH, Ultra Sensitive (0.358-3.740) mIU/mL Specimen Type Urine Color Urine Appearance Urine pH (5.0-9.0) Ur Specific [place] (1.005-1.030) Urine Protein (NEGATIVE) mg/dL Urine Glucose (UA) (NEGATIVE) mg/dL Urine Ketones (NEGATIVE) mg/dL Urine Occult Blood (NEGATIVE) Urine Nitrite (NEGATIVE) Urine Bilirubin (NEGATIVE) Urine Urobilinogen (0.2-1.0) E.U./dL Ur Leukocyte Esterase (NEGATIVE) U Hyaline Cast (Auto) Urine RBC /HPF Urine WBC /HPF Ur Epithelial Cells /LPF Urine Bacteria (NONE TO FEW) /HPF Urine Other KAYLENE Results - Last 24 hrs: None Med Orders - Current: Current Medications Acetaminophen (Tylenol) 650 mg PO Q4H PRN PRN Reason: Pain Last Admin: 06/15/19 01:58 Dose: 650 mg Cyanocobalamin (Vitamin B12) 1,000 mcg PO DAILY [facility] Furosemide (Lasix) 40 mg IVPUSH Q8H LUCINDA Last Admin: 06/15/19 01:55 Dose: 40 mg Gabapentin (Neurontin) 100 mg PO DAILY [facility] Heparin Sodium (Porcine) (Heparin Sodium) 4,000 units IVPUSH ONETIME ONE Stop: 06/15/19 10:00 Ceftriaxone Sodium 1 gm/ (Sodium Chloride) 100 mls @ 200 mls/hr IV Q12H [facility] Lisinopril (Prinivil) 40 mg PO DAILY [facility] Magnesium Oxide (Magnesium Oxide) 400 mg PO DAILY [facility] Metoprolol Tartrate (Lopressor) 50 mg PO BID [facility] Nitroglycerin (Nitrostat) 0.4 mg SL ONETIME STA Stop: 06/15/19 17:58 Last Admin: 06/14/19 17:57 Dose: 0.4 mg Nitroglycerin (Nitrostat) 0.4 mg SL ONETIME STA Stop: 06/15/19 18:22 Last Admin: 06/14/19 18:24 Dose: 0.4 mg Nitroglycerin (Nitro-Bid 2%) 0.5 gm TOP Q6H LUCINDA Last Admin: 06/15/19 01:54 Dose: 0.5 gm Potassium Chloride (Klor-Con M20) 20 meq PO TID LUCINDA Sertraline HCl (Zoloft) 50 mg PO DAILY [facility] Sodium Chloride (Saline Flush) 10 ml FLUSH ASDIRECTED PRN PRN Reason: Keep Vein Open Last Admin: 06/15/19 01:58 Dose: 10 ml Sodium Chloride (Saline Flush) 10 ml FLUSH Q12HR PRN PRN Reason: Keep Vein Open Spironolactone (Aldactone) 25 mg PO BID [facility] Temazepam (Restoril) 15 mg PO BEDTIME PRN PRN Reason: Insomnia Last Admin: 06/14/19 21:23 Dose: 15 mg Trimethoprim/Sulfamethoxazole (Septra Ds) 1 tab PO BID [facility] Discontinued Medications Aspirin (Aspirin) 324 mg CHEW ONETIME ONE Stop: 06/15/19 10:00 Famotidine (Pepcid) 40 mg IVPUSH ONETIME ONE Stop: 06/14/19 17:57 Last Admin: 06/14/19 18:25 Dose: 40 mg Furosemide (Lasix) 60 mg IVPUSH NOW ONE Stop: 06/14/19 18:44 Last Admin: 06/14/19 19:02 Dose: 60 mg Magnesium Sulfate (Magnesium Sulfate In Water Premix) 100 mls @ 100 mls/hr IV ONETIME ONE Stop: 06/14/19 21:25 Last Admin: 06/14/19 21:17 Dose: 100 mls/hr Labetalol HCl (Normodyne) 10 mg IVPUSH ONETIME ONE; Protocol Stop: 06/14/19 19:16 Last Admin: 06/14/19 19:20 Dose: 10 mg Labetalol HCl (Normodyne) 10 mg IVPUSH ONETIME ONE; Protocol Stop: 06/14/19 19:32 Last Admin: 06/14/19 19:34 Dose: 10 mg Nitroglycerin (Nitro-Bid 2%) 0.5 gm TOP ONETIME ONE Stop: 06/14/19 19:02 Last Admin: 06/14/19 19:04 Dose: 0.5 gm Potassium Chloride (Klor-Con M20) 20 meq PO ONETIME ONE Stop: 06/14/19 18:44 Last Admin: 06/14/19 19:03 Dose: 20 meq - Exam Quality Assessment: Reports: DVT Prophylaxis. Denies: Supplemental Oxygen, Urine Catheter, Skin Breakdown, Restraints General: Reports: Alert, Oriented, Cooperative, No Acute Distress HEENT: Reports: Pupils Equal, Pupils Reactive, EOMI, Mucous Membr. Moist/[place], Other (Patient wearing glasses. Right-sided Rhino Rocket with no significant acute epistaxis). Denies: Scleral Icterus Neck: Reports: Supple, Trachea Midline, No JVD, No Thyromegaly, Carotid Bruit ( Mild bilateral carotid bruits). Denies: Lymphadenopathy Lungs: Reports: Normal Respiratory Effort, Rales (Bilateral basilar ralesmild) . Denies: Rhonchi, Rub, Wheezing Cardiovascular: Reports: Regular Rate, Regular Rhythm, Murmurs (Mild 1/6 CALIN of the mitral valve). Denies: Gallops, Rubs GI/Abdominal Exam: Normal Bowel Sounds, Soft, Non-Tender, No Organomegaly, No Distention, No Abnormal Bruit, No Mass, Other (Obese). No: Guarding (Male) Exam: Deferred Rectal (Males) Exam: Deferred Back Exam: Reports: Normal Inspection, Full Range of Motion. Denies: CVA Tenderness (L), CVA Tenderness (R), Muscle Spasm Extremities: Normal Inspection, Normal Range of Motion, Non-Tender, No Pedal Edema, Normal Capillary Refill. No: Jelani's Sign Skin: Reports: Warm, Dry, Intact. Denies: Ecchymosis Wound/Incisions: Reports: Healing Well (Stable left lateral right knee eschar lesion as per emergency room note) Neurological: Reports: No New Focal Deficit Psy/Mental Status: Reports: Alert, Normal Affect, Normal Mood. Denies: Hallucinations, Withdrawal Symptoms EKG INTERPRETATION EKG Date: 06/15/19 Time: 08:15 Rhythm: NSR Rate (Beats/Min): 78 [place]: Normal (Left) P-Wave: Enlarged (Moderate Diffuse biphasic P waves with poor R-wave progression in the anterior leads) QRS: Wide (0.10 seconds representing representing repolarization changes) ST-T: Normal (Nonspecific ST changes) QT: Normal KS/PQ Interval: 0.14 seconds representing a short [place] interval with no delta waves noted. Comparison: No Change (Last EKG on 06/14/19) EKG Interpretation Comments: 1. No acute ischemic changes 2. Short [place] interval 3. Repolarization changes 4. Left Atrial enlargement
[2019-06-15 11:05] VITALS: BP 156/67; PULSE 71
== END 2019-06-15 11:00 | DRG 291 ==
LOC: LL.ED 17:46 → LL.MS 19:59 → UNDOADMIN 19:59 → LL.MS 20:10 → UNDODISIN 06-15 11:00
PROVIDERS: ADMIT Family Medicine; ATTEND Family Medicine
DX: R51 Headache (principal); R07.2 Precordial pain; E11.9 Type 2 diabetes mellitus without complications; E78.2 Mixed hyperlipidemia; I11.0 Hypertensive heart disease with heart failure; J18.9 Pneumonia, unspecified organism; H91.90 Unspecified hearing loss, unspecified ear; H54.7 Unspecified visual loss; R74.0 Nonspecific elevation of levels of transaminase and lactic acid dehydrogenase [LDH]; I73.9 Peripheral vascular disease, unspecified; K21.9 Gastro-esophageal reflux disease without esophagitis; N40.0 Benign prostatic hyperplasia without lower urinary tract symptoms; H91.8X3 Other specified hearing loss, bilateral; E78.00 Pure hypercholesterolemia, unspecified; I87.8 Other specified disorders of veins; I65.23 Occlusion and stenosis of bilateral carotid arteries; I10 Essential (primary) hypertension; M19.90 Unspecified osteoarthritis, unspecified site; M54.9 Dorsalgia, unspecified; G89.29 Other chronic pain; M54.2 Cervicalgia; G62.9 Polyneuropathy, unspecified; E11.42 Type 2 diabetes mellitus with diabetic polyneuropathy; I69.354 Hemiplegia and hemiparesis following cerebral infarction affecting left non-dominant side; E66.9 Obesity, unspecified; F31.9 Bipolar disorder, unspecified; E78.5 Hyperlipidemia, unspecified; I50.9 Heart failure, unspecified; J43.1 Panlobular emphysema; D64.9 Anemia, unspecified; N28.9 Disorder of kidney and ureter, unspecified; R79.89 Other specified abnormal findings of blood chemistry; E79.0 Hyperuricemia without signs of inflammatory arthritis and tophaceous disease; F41.8 Other specified anxiety disorders; R04.0 Epistaxis; E83.42 Hypomagnesemia; Z86.73 Personal history of transient ischemic attack (TIA), and cerebral infarction without residual deficits; Z88.0 Allergy status to penicillin; Z88.1 Allergy status to other antibiotic agents; Z98.890 Other specified postprocedural states; Z98.1 Arthrodesis status; Z87.891 Personal history of nicotine dependence; Z88.8 Allergy status to other drugs, medicaments and biological substances; Z79.82 Long term (current) use of aspirin; Z79.899 Other long term (current) drug therapy; Z68.37 Body mass index [BMI] 37.0-37.9, adult
CPT/HCPCS: 36415; 71045; 80053; 82550 ×2; 82553 ×2; 83605; 83735; 83880; 84443; 84484 ×2; 84550; 85025; 85379; 85610; 85730; 93005; A9270 ×4; J1940; J3490 ×3; 80061; 81001; 83036; 87086; 96374; 96375; 99285-25; J0696; J1644; J3475; J7050

== ENCOUNTER 2020-02-06 10:56 | Day surgery (SDC) | payer MEDICARE, BC ==
[~2020-02-06 10:56] MED LIST: Lactated Ringers 1,000 ML IV SCH; Midazolam 1 MG/ML 2 ML SDV ONE; Propofol 200 MG/20 ML SDV ONE; Sodium Chloride 0.9% 10 ML Syringe FLUSH PRN
[2020-02-06] MEDS ORDERED: 50% Dextrose in Water 50 ML Syringe IVPUSH ONE (12:47)
[2020-02-06] MEDS ORDERED: Propofol 200 MG/20 ML SDV ONE (13:17)
[2020-02-06] MEDS ORDERED: Midazolam 1 MG/ML 2 ML SDV ONE (13:17)
--- NOTE | 2020-02-06 13:25 | PCM.PN ---
- General Info Date of Service: 02/06/20 - Review of Systems Systems Review Comment:: 70-year-old male referred for initial screening colonoscopy. He denies any known family history of colon cancer or any recent change in bowel pattern. His recent history and physical is reviewed and no significant changes are noted. I have discussed the proposed colonoscopy with the patient. Risks such as but not limited to bleeding and GI injury reviewed. He agrees to proceed. - Patient Data Vitals - Most Recent: Last Vital Signs Temp 97.4 F 02/06/20 11:48 Pulse 50 L 02/06/20 11:48 Resp 18 02/06/20 11:48 BP 150/70 H 02/06/20 11:48 Pulse Ox 95 02/06/20 11:48 Weight - Most Recent: 118.388 kg Lab Results Last 24 Hours: Laboratory Results - last 24 hr 02/06/20 02/06/20 02/06/20 Range/Units 11:53 12:42 13:09 POC Glucose 104 98 155 H (65-110) mg/dl Med Orders - Current: Current Medications Lactated Ringer's (Ringers, Lactated) 1,000 mls @ 125 mls/hr IV ASDIRECTED LUCINDA Last Admin: 02/06/20 12:10 Dose: 125 mls/hr Documented by: Sodium Chloride (Saline Flush) 10 ml FLUSH ASDIRECTED PRN PRN Reason: Keep Vein Open Discontinued Medications Dextrose/Water (Dextrose 50% In Water) 25 ml IVPUSH ONETIME ONE Stop: 02/06/20 12:48 Last Admin: 02/06/20 12:52 Dose: 25 ml Documented by: Midazolam HCl (Versed 1 Mg/Ml) Confirm Administered Dose 2 mg .ROUTE .STK-MED ONE Stop: 02/06/20 08:25 Propofol (Diprivan 20 Ml) Confirm Administered Dose 400 mg .ROUTE .STK-MED ONE Stop: 02/06/20 08:25 Sepsis Event Note - Focused Exam Vital Signs: Vital Signs Temp Pulse Resp BP Pulse Ox 02/06/20 11:48 97.4 F 50 L 18 150/70 H 95 - Problem List Review Problem List Initiated/Reviewed/Updated: Yes - My Orders Last 24 Hours: My Active Orders 02/06/20 08:00 Accu Check [Blood Glucose Check, Bedside] [] ONETIME - Assessment Assessment:: Colon cancer screening - Plan Plan:: Colonoscopy
--- NOTE | 2020-02-06 13:45 | PCM.OPNOTE ---
- General Post-Op/Procedure Note Date of Surgery/Procedure: 02/06/20 Operative Procedure(s): Colonoscopy Findings: Moderate sized external hemorrhoids Normal appearing colon Pre Op Diagnosis: Colon cancer screening Post-Op Diagnosis: hemorrhoids Anesthesia Technique: MAC Primary Surgeon: Darnell Ramos Pathology: none EBL in mLs: 0 Complications: None Condition: Good
--- NOTE | 2020-02-06 15:00 | OR ---
Date of Procedure: 02/06/2020 PREOPERATIVE DIAGNOSIS: Colon cancer screening. POSTOPERATIVE DIAGNOSIS: External hemorrhoids. OPERATIONS PERFORMED: Colonoscopy. INDICATIONS FOR SURGERY: This 70-year-old male is referred today for his initial screening colonoscopy. He denies any change in bowel pattern or family history of colon cancer. FINDINGS: The patient has some moderate to large external hemorrhoids. The colon and terminal ileum, otherwise, appear normal. No polyps were seen on today's exam. DESCRIPTION OF PROCEDURE: The patient was taken to the operating room, was given intravenous sedation, and with him in the left lateral decubitus position, digital rectal exam was performed showing no rectal masses. The Olympus colonoscope was inserted into the rectum. Retroflexed examination of the rectal canal was performed. The scope was then carefully advanced under direct visualization throughout the entire length of the colon until the cecum was reached. Cecal acquisition was confirmed by noting normal internal cecal anatomy including the appendiceal orifice and the ileocecal valve. The ileocecal valve was cannulated and the terminal ileum examined and appeared normal. The scope was then slowly withdrawn sequentially re-examining the colonic segments until the entire colon and rectum had been fully examined. The scope was removed and the patient was taken from the operating room in satisfactory condition. ESTIMATED BLOOD LOSS: Zero. COMPLICATIONS: None. PROGNOSIS: Good. POPPY Ramos MD /[id number]
[2020-02-06 16:54] VITALS: BP 152/84; PULSE 55
== END 2020-02-06 15:10 | disposition home or self-care (01) ==
LOC: LL.SDS 10:56
PROVIDERS: ATTEND Surgery
DX: Z12.11 Encounter for screening for malignant neoplasm of colon (principal); K64.4 Residual hemorrhoidal skin tags; E11.22 Type 2 diabetes mellitus with diabetic chronic kidney disease; N18.32 Chronic kidney disease, stage 3b; M54.12 Radiculopathy, cervical region; G89.29 Other chronic pain; Z01.812 Encounter for preprocedural laboratory examination; Z20.828 Contact with and (suspected) exposure to other viral communicable diseases; Z88.8 Allergy status to other drugs, medicaments and biological substances; Z88.1 Allergy status to other antibiotic agents; Z88.0 Allergy status to penicillin; Z79.82 Long term (current) use of aspirin; Z79.899 Other long term (current) drug therapy
CPT/HCPCS: 00812; 82962; J2250; J2704; J7120; U0002

== ENCOUNTER 2020-07-28 11:10 | Inpatient (IN) | payer MEDICARE, BC ==
[2020-07-28] MEDS ORDERED: Famotidine 20 MG/2 ML SDV IVPUSH ONE (11:28)
[2020-07-28] MEDS ORDERED: Aspirin 81 MG Tab.Chew CHEW ONE (11:28)
[2020-07-28] MEDS ORDERED: Sodium Chloride 0.9% 10 ML Syringe FLUSH PRN ×2 (11:28→14:26)
[2020-07-28] MEDS ORDERED: Ticagrelor 90 MG Tab PO ONE (11:28)
--- NOTE | 2020-07-28 11:28 | EDM.PDOC ---
ED HPI GENERAL MEDICAL PROBLEM - General Chief Complaint: Cardiovascular Problem Stated Complaint: foggy, fatigue, SOB Time Seen by Provider: 07/28/20 11:15 Source of Information: Reports: Patient, Old Records ([facility] EMR. No paper hospital chart available.), Other ([facility] EMR) History Limitations: Reports: No Limitations - History of Present Illness INITIAL COMMENTS - FREE TEXT/NARRATIVE: The patient walked to our emergency room [facility] in [place] after they sent him to this facility for further evaluation of his elevated blood pressure and chest pain during the last couple of days. No verbal report or records were received from that clinic prior to arrival to his facility. Patient complains of 5/10 retrosternal chest pressure with radiation to the shoulders bilaterally and left neck region with neck pain complicated by chronic osteoarthritis. His home blood pressures have been averaging in the 190s to 90s with apparent multiple medication changes at the [facility] in [place] yesterday. He did take 325 mg of coated aspirin at 5:30 AM this morning with no other treatment or medications for her symptoms to this point. He rarely checks his Accu-Cheks at home, which were in the 120s 2 days ago. He has had some mild polydipsia with no UTI symptoms, gross hematuria, colic, etc. The patient denies any heart flutter, dizziness, orthostasis, orthopnea, diaphoresis, paresthesias, recent decreased exercise tolerance, or any other anginal-type symptoms. No recent history of abdominal pain, heartburn, emesis, diarrhea, melena, gross hematochezia, or any food intolerance, including fatty foods, etc.. He did have occasional nausea with the above symptoms, however not currently, with normal bowel movement yesterday. The patient also denies any recent fever, wheezing, dyspnea, etc. with stable chronic nonproductive cough during the last couple of weeks with no known exposure to infection. No history of recent visual changes, diplopia, change in mental status, or other change in neurological status with stable chronic diffuse headaches and left-sided hemiparesis. The patient has received both of his Pfizer COVID-19 immunizations with last dose at the end of June. Onset: Gradual Onset Date: 07/26/20 Duration: Intermittent Location: Reports: Neck, Chest, Upper Extremity, Left, Upper Extremity, Right, Radiates to (As above). Denies: Head, Face, Abdomen, Back, Pelvis Quality: Reports: Pressure, Same as Previous Episode Severity: Moderate Improves with: Reports: None Worsens with: Reports: None Context: Reports: Other (As above). Denies: Sick Contact, Trauma Associated Symptoms: Reports: Chest Pain, Cough (Chronic as above), Diaphoresis, Headaches (Chronic as above), Nausea/Vomiting (As above), Weakness (Stable generalized and left hemiparesis as above). 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) (As above) Chest Pain Score (Numeric/FACES): 5 - Related Data Allergies Allergy/AdvReac Type Severity Reaction Status Date / Time amitriptyline Allergy RASH, Verified 07/28/20 11:12 CONFUSION, HALLUCINATIONS atorvastatin [From Lipitor] Allergy Muscle Verified 07/28/20 11:12 Aches butalbital [From Vanatol LQ] Allergy Indigestion Verified 07/28/20 11:12 ciprofloxacin Allergy Hives Verified 07/28/20 11:12 Penicillins Allergy Hives Verified 07/28/20 11:12 Escin (Aesculus) Allergy Hives Uncoded 07/28/20 11:12 Home Meds: Home Meds Cyanocobalamin (Vitamin B-12) [Vitamin B-12] 1 tab PO DAILY 11/14/15 [History] Gabapentin [Neurontin] 300 mg PO DAILY 11/14/15 [History] Sertraline [Zoloft] 50 mg PO DAILY 06/14/19 [History] Aspirin 325 mg PO DAILY 02/05/20 [History] Metoprolol Succinate [Toprol Xl] 50 mg PO DAILY 02/05/20 [History] Acetaminophen [Tylenol] 2 tab PO Q6H PRN 07/28/20 [History] Furosemide [Lasix] 40 mg PO DAILY PRN 07/28/20 [History] [place]ike-3/DHA/Epa/Fish Oil [Super Dha Gems Softgel] 1 cap PO Q7D 07/28/20 [History] lisinopriL [Lisinopril] 5 mg PO DAILY 07/28/20 [History] lisinopriL [Lisinopril] 10 mg PO 1500 07/28/20 [History] Past Medical History HEENT History: Reports: Hard of Hearing, Impaired Vision, Other (See Below). 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 Patient wears glasses. Cardiovascular History: Reports: Arrhythmia, Heart Failure, High Cholesterol, Hypertension, PVD. Denies: Afib, Aneurysm, Blood Clots/VTE/DVT, Bypass, CAD, Cardiomyopathy, Heart Murmur, OR, Prior Cardiac Arrest, PTCA, Syncope Other Cardiovascular History: Known bilateral carotid occlusive disease with right sided complete internal carotid occlusion and secondary CVA with no surgery to this point. Note additional 50-69% left-sided internal carotid artery stenosis by last carotid artery Doppler studies on 12/26/2019. Dyslipidemia. Mild left ventricular hypertrophy by echocardiogram as below. Respiratory History: Reports: Bronchitis, Recurrent, COPD, Intubation, Previous, Pneumonia, Recurrent, SOB, Other (See Below). Denies: Asthma, Intubation, Difficult, PE, Pneumothorax, Sleep Apnea, TB Other Respiratory History: COPD via chest x-ray. History of sternal osteomyelitis requiring surgery as below. In spite of previous medical records patient denies sleep apnea and has never had a sleep study. Gastrointestinal History: Reports: GERD, Hemorrhoids. Denies: Bowel Obstruction, Celiac Disease, Cholelithiasis, Chronic Constipation, Chronic Diarrhea, Colon Polyp, Fatty Liver, Fecal Incontinence, Gastritis, GI Bleed, Hepatitis, Hiatal Hernia, Inflammatory Bowel Disease, Irritable Bowel Syndrome, Jaundice, Pancreatitis, PUD Genitourinary History: Reports: BPH, Chronic Renal Insuffiency, Diabetic Nephropathy, Prostate Disorder. Denies: Acute Renal Failure, Renal Calculus, Retention, Urinary, STD, Urinary Incontinence, UTI, Recurrent Musculoskeletal History: Reports: Arthritis, Back Pain, Chronic, Fracture, Gout, Neck Pain, Chronic, Osteoarthritis, Other (See Below). Denies: Amputation, RA, SLE Other Musculoskeletal History: Osteomyelitis of sternum and lumbar region requiring sternal and lumbar surgery as below and additional extensive IV antibiotic therapy/hospitalization in 2016. Right distal fibular fracture on 05/01/14. Hyperuricemia with no history of gout. Neurological History: Reports: CVA, Headaches, Chronic, Neuropathy, Diabetic, Neuropathy, Peripheral. Denies: Alzheimers Disease, Brain Injury, Cerebral Aneurysms, Concussion, Head Trauma, Migraines, MS, Parkinson's, Seizure, TIA, Vertigo Other Neuro History: Right CVA secondary to carotid occlusive disease in 2016 with borderline persistent mild left hemiparesis. Tension rather than migraine headaches by patient history. Radiculopathy versus peripheral neuropathy secondary to his osteoarthritis. Psychiatric History: Reports: Anxiety, Depression, Other (See Below). Denies: Abuse, Victim of, ADD, ADHD, Addiction, Alzheimers Disease, Dementia, Psych Hospitalization(s), Psychosis, PTSD, Suicide Attempt, Suicidal Ideation Other Psychiatric History: Additional history of major depression. Endocrine/Metabolic History: Reports: Diabetes, Type II, Hypomagnesemia, Obesity/BMI 30+. Denies: Diabetes, Type I, Diabetes Mellitus, Type 3c, Hypothyroidism, IDDM Other Endocrine/Metabolic History: Borderline Diabetes with no current medical therapy. Hematologic History: Reports: Anemia, Blood Transfusion(s). Denies: Iron Deficiency Other Hematologic History: Thrombocytopenia. 2 Units of packed red blood cells in 2016 with spinal fusion as below. Immunologic History: Reports: None. Denies: AIDS, HIV, SLE Oncologic (Cancer) History: Reports: None. Denies: Basal Cell Carcinoma, Bladder, Colon, Hodgkin's Lymphoma, Leukemia, Lung, Lymphoma, Malignant Melanoma, Non-Hodgkin's Lymphoma, Prostate, Squamous Cell Carcinoma Dermatologic History: Reports: Chronic Cellulitis. Denies: Eczema, Psoriasis Other Dermatologic History: Chronic eschar/cellulitis in the lateral right knee area - Infectious Disease History Infectious Disease History: Reports: Chicken Pox, Measles, Mumps, Rheumatic Fever, Rubella. Denies: C-Difficile, Meningitis, Mononucleosis, MRSA, Novel Coronavirus, Pertussis (Whooping Cough), SARS, Scarlet Fever, Shingles, TB, VRE - Past Surgical History Head Surgeries/Procedures: Reports: None HEENT Surgical History: Reports: Oral Surgery, Other (See Below). Denies: Adenoidectomy, Cataract Surgery, Eye Surgery, Laser Surgery, LASIK, Myringotomy w Tube(s), Naso-Sinus Surgery, Polypectomy, Tonsillectomy Other HEENT Surgeries/Procedures: Complete teeth extraction with complete dentures uppers and lowers. Cardiovascular Surgical History: Reports: None. Denies: Carotid Endarterectomy, Carotid Stents, Coronary Artery Bypass, Pacer, Percutaneous Transluminal Angioplasty, Varicose, Vascular Surgery Other Cardiovascular Surgeries/Procedures: osteomylitis of sternum with sternal removal on 07/17/2015 with subsequent sternal closure on 08/27/2015. Respiratory Surgical History: Reports: Other (See Below). Denies: Thoracentesis Other Respiratory Surgeries/Procedures: Osteomylitis of sternum with sternal removal on 07/17/2015 with subsequent sternal closure on 08/27/2015.Bronchoscopy on 07/17/2015. GI Surgical History: Reports: Colonoscopy, EGD, Hernia, Inguinal, Other (See Below). Denies: Appendectomy, Cholecystectomy, Hernia, Abdominal, Hernia Repair/Other, Polypectomy Other GI Surgeries/Procedures: Colonoscopy on 02/06/2020. EGD in 1987. Right inguinal hernia repair in 2001. Male Surgical History: Denies: Circumcision, TURP-Transurethral Resection of Prostate, Vasectomy Endocrine Surgical History: Reports: None. Denies: Thyroid Biopsy Neurological Surgical History: Reports: Laminectomy, Lumbar Spine, Spinal Fusion, Other (See Below) Other Neurological Surgeries/Procedures: Laminectomy of L3-L5 with additional spinal fusion/arthrodesis and additional. L3 biopsy on 12/09/2015. Previous disc biopsy of L4-L5 on 10/06/2015. Musculoskeletal Surgical History: Reports: Other (See Below) Other Musculoskeletal Surgeries/Procedures:: Vertebral surgery in 11/2015. Patient had a rods and plate placed in 2 vertebrea in lower back Oncologic Surgical History: Reports: None Dermatological Surgical History: Reports: None - Past Imaging History Past Imaging History: Reports: Bone Scan (08/01/15), Cardiac Echo (Last on 06/15/2019 with ejection fraction of 55-60% and otherwise findings as above. Previous echocardiogram on 07/17/2015.), Carotid US (Last on 12/26/2019 with findings as above with previous evaluations on 12/27/2018, and 05/04/18.), CAT Scan (CT of the lumbar spine on 11/27/2015. A CT of the head on 06/20/2016. Low- dose screening CT of the chest in 2019. CT of the chest on 07/30/2015.), MRI (Lumbar spine on 11/10/2015 and 09/28/15. C-spine on 11/09/2018.), Stress Testing (Negative Lexiscan on 06/17/2019 with ejection fraction of 59%. Exercise stress test in 2016 at per patient history), Upper GI X- Ray/Series (Esophagram on 07/18/2015.) Social & Family History - Family History HEENT: Reports: Macular Degeneration, Other (See Below). Denies: Glaucoma, Retinal Detachment Other HEENT Family History: Mother with macular degeneration. Cardiac: Reports: Heart Failure, Hypertension, Other (See Below). Denies: Afib, Aneurysm, Arrhythmia, Blood Clots/VTE/DVT, CAD, High Cholesterol, OR, PVD/COD, Syncope Other Cardiac Family History: Father with fatal CHF at age 87. Respiratory: Reports: None. Denies: Asthma, COPD, PE, Pneumothorax, Sleep Apnea GI: Reports: None. Denies: Celiac Disease, Cholelithiasis, Colon Polyps, GERD, GI bleed, Inflammatory Bowel Disease, Irritable Bowel Syndrome, PUD : Reports: Renal Calculus, Other (See Below). Denies: Renal Disease/Insufficiency Other Family History: Father with urolithiasis OBGYN: Reports: None. Denies: Dysfunctional uterine bleeding, Endometriosis, Recurrent Spontaneous Musculoskeletal: Reports: None. Denies: Arthritis, Gout, Osteoarthritis, RA, SLE Neurological: Reports: None. Denies: Alzheimers Disease, Cerebral Aneurysms, CVA, Dementia, Migraines, MS, Parkinson's, Seizure, TIA Psychiatric: Reports: None. Denies: Abuse, Victim of, ADD, ADHD, Anxiety, Depression, Psych Hospitalization(s), PTSD, Suicide Attempt Endocrine/Metabolic: Reports: Hypothyroidism, Other (See Below). Denies: Diabetes, Type I, Diabetes, type II, Diabetes Mellitus, Type 3c, IDDM Other Endocrine/Metabolic Family History: Mother with hypothyroidism. Hematologic: Reports: None. Denies: Anemia, SLE Immunologic: Reports: None. Denies: AIDS, HIV, SLE Dermatologic: Reports: None. Denies: Eczema, Psoriasis Oncologic: Reports: Prostate, Other (See Below). Denies: Colon, Hodgkin's Lymphoma, Leukemia, Lung, Lymphoma, Metastatic, Non-Hodgkin's Lymphoma, Pancreatic, Skin Other Oncologic Family History: Brother with prostate cancer in his late 50s. Another brother with prostate cancer in his 70s. - Tobacco Use Tobacco Use Status *Q: Former Tobacco User Tobacco Use Within Last Twelve Months: No Years of Tobacco use: 46 Packs/Tins Daily: 1 Packs/Tins Daily Comment: Smoked between ages 19 and 65 with maximum use of 1.5 packs/day. Used Tobacco, but Quit: Yes Smoking Cessation Information Provided To Patient: No Second Hand Smoke Exposure: No Second Hand Smoke Education Provided: No - Caffeine Use Caffeine Use: Reports: Coffee (3 cups/day), Soda (2 sodas per day), Tea (Very occasional). Denies: Energy Drinks - Alcohol Use Alcohol Use History: Yes Days Per Week of Alcohol Use: 0 Number of Drinks Per Day: 1 Number of Drinks Per Day Comment: Usually wine for holidays. No previous DWIs, problems with alcohol abuse, etc. 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 ED EXAM, GENERAL - Physical Exam Exam: See Below Exam Limited By: No Limitations General Appearance: Alert, WD/WN, No Apparent Distress Eye Exam: Bilateral Eye: EOMI, Normal Fundi, Normal Inspection (Patient is wearing glasses. No vertigo or nystagmus), PERRL Ears: Normal External Exam, Normal Canal, Hearing Grossly Normal, Normal TMs Nose: Normal Inspection, Normal Mucosa, No Blood Throat/Mouth: Normal Inspection, Normal Lips, Normal Gums, Normal Oropharynx, Normal Voice, No Airway Compromise. No: Normal Teeth (Complete dentures uppers and lowers), Dysphagia, Perioral Cyanosis Head: Atraumatic, Normocephalic. No: Facial Swelling, Facial Tenderness, Sinus Tenderness Neck: Supple, Non-Tender, Full Range of Motion, Carotid Bruit (Mild left-sided carotid bruit). No: Lymphadenopathy (L), Lymphadenopathy (R), Thyromegaly Respiratory/Chest: No Respiratory Distress, No Accessory Muscle Use, Chest Non- Tender, Rales (Mild diffuse bilaterally particularly on the basis), Rhonchi (Occasional bilaterally). No: Wheezing, Pleural Rub, Retractions Cardiovascular: Normal Peripheral Pulses, No Edema, No Gallop, No JVD, No Murmur, No Rub, Bradycardia, Extra Beats (Mild sinus arrhythmia with very occasi onal PACs as below). No: Gallop/S3, Gallop/S4, Friction Rub Peripheral Pulses: 2+: Radial (L), Radial (R), Dorsalis Pedis (L), Dorsalis Pedis (R) GI/Abdominal: Normal Bowel Sounds, Soft, Non-Tender, No Organomegaly, No Distention, No Abnormal Bruit, No Mass, Other (Obese). No: Guarding (Male) Exam: Deferred Rectal (Males) Exam: Deferred Back Exam: Normal Inspection, Full Range of Motion. No: CVA Tenderness (L), CVA Tenderness (R), Muscle Spasm Extremities: Normal Inspection, Normal Range of Motion, Non-Tender, No Pedal Edema, Normal Capillary Refill. No: Jelani's Sign Neurological: Alert, Oriented, CN II-XII Intact, Normal Cognition, Normal Gait, Normal Reflexes (Negative Babinski's), Other (Borderline stable by history left hemiparesis) Psychiatric: Normal Affect, Normal Mood Skin Exam: Warm. No: Ecchymosis, Wound/Incision Lymphatic: No Adenopathy #1 Interpretation EKG Date: 07/28/20 Time: :29 Rhythm: Other (Mild sinus arrhythmia) Rate (Beats/Min): 62 [place]: Normal (Left) P-Wave: Present QRS: Wide (0.11 seconds representing stable repolarization changes) ST-T: Normal (Resolution of previous borderline T wave inversion in lead III) QT: Prolonged (New prolonged QT at 464/470 ms) GA/PQ Interval: 0.15 seconds representing improved borderline short GA interval with no delta waves noted. Stable extreme poor wave progression in the anterior leads. Comparison: Change From Previous EKG (As above since 06/15/2019.) EKG Interpretation Comments: 1. No acute ischemic changes 2. Sinus arrhythmia 3. Repolarization changes with borderline short GA interval 4. Mildly prolonged QT Course - Vital Signs Last Recorded V/S: Last Vital Signs Temp 36.3 C 07/28/20 11:17 Pulse 58 L 07/28/20 13:01 Resp 15 07/28/20 13:01 BP 193/95 H 07/28/20 13:01 Pulse Ox 97 07/28/20 13:01 Vital Signs - 24 hr 07/28/20 07/28/20 07/28/20 11:17 11:28 11:34 Temperature [ 36.3 C Temporal] Pulse, 62 62 Peripheral [ Left] Respiratory 23 H 18 Rate Blood Pressure Blood Pressure 185/79 H 192/77 H [Right] O2 Sat by Pulse 96 94 L Oximetry O2 Sat by Pulse 96 Oximetry [Room Air] 07/28/20 07/28/20 07/28/20 11:43 11:46 12:00 Temperature [ Temporal] Pulse, 60 57 L Peripheral [ Left] Respiratory 19 16 Rate Blood Pressure 192/77 H Blood Pressure 174/80 H 182/84 H [Right] O2 Sat by Pulse 97 97 Oximetry O2 Sat by Pulse Oximetry [Room Air] 07/28/20 07/28/20 07/28/20 12:16 13:00 13:01 Temperature [ Temporal] Pulse, 65 57 L 58 L Peripheral [ Left] Respiratory 17 16 15 Rate Blood Pressure Blood Pressure 177/77 H 183/83 H 193/95 H [Right] O2 Sat by Pulse 97 98 97 Oximetry O2 Sat by Pulse Oximetry [Room Air] - Orders/Labs/Meds Orders: Active Orders 24 hr Category Date Time Status Cardiac Monitoring [RC] . DIRECTED Care 07/28/20 11:28 Active EKG Documentation Completion [RC] ASDIRECTED Care 07/28/20 11:28 Active Oxygen Therapy, ED [RC] PRN Care 07/28/20 11:28 Active Peripheral IV Care [RC] . DIRECTED Care 07/28/20 11:28 Active Pulse Oximetry [RC] CONTINUOUS Care 07/28/20 11:28 Active Up With Assistance [RC] PFP Care 07/28/20 11:28 Active Vital Signs [RC] PFP Care 07/28/20 11:28 Active Nothing per Oral Now Diet [DIET] Diet 07/28/20 Breakfast Active Chest 1V Frontal [CR] Stat Exams 07/28/20 11:28 Taken Nitroglycerin [Nitrostat] Med 07/28/20 11:29 Stat 0.4 mg SL ONETIME STA Sodium Chloride 0.9% [Saline Flush] Med 07/28/20 11:28 Active 10 ml FLUSH ASDIRECTED PRN Obtain Past Medical Record [OM.PC] Urgent Oth 07/28/20 11:28 Active Peripheral IV Insertion Adult [OM.PC] Stat Oth 07/28/20 11:28 Ordered Resuscitation Status Stat Resus Stat 07/28/20 11:28 Ordered Medication Orders Nitroglycerin (Nitroglycerin 0.4 Mg Tab.Sl) 0.4 mg SL ONETIME STA Stop: 07/29/20 11:30 Last Admin: 07/28/20 11:43 Dose: 0.4 mg Documented by: BAIRON Sodium Chloride (Sodium Chloride 0.9% 10 Ml Syringe) 10 ml FLUSH ASDIRECTED PRN PRN Reason: Keep Vein Open Labs: Laboratory Tests 07/28/20 07/28/20 07/28/20 Range/Units 11:37 11:37 11:37 WBC 5.8 (4.0-10.2) K/uL RBC 3.67 L (4.33-5.41) M/uL Hgb 12.2 L (13.1-16.8) g/dL Hct 37.1 L (39.0-49.0) % MCV 101.1 H (84.0-98.0) fL MCH 33.2 (28.2-33.3) pg MCHC 32.9 (31.7-36.0) g/dL RDW 15.0 H (11.2-14.1) % Plt Count 210 (150-350) K/uL Neut % (Auto) 61.2 (45.0-80.0) % Lymph % (Auto) 23.5 (10.0-50.0) % [place] % (Auto) 8.3 (2.0-14.0) % Eos % (Auto) 6.3 H (0.0-5.0) % Baso % (Auto) 0.7 (0.0-2.0) % Neut # (Auto) 3.52 (1.40-7.00) K/uL Lymph # (Auto) 1.35 (0.50-3.50) K/uL [place] # (Auto) 0.48 (0.00-1.00) K/uL Eos # (Auto) 0.36 (0.00-0.50) K/uL Baso # (Auto) 0.04 (0.00-0.20) K/uL PT 9.6 (9.5-12.0) SEC INR 1.0 APTT 27.1 (24.5-32.8) SEC D-Dimer, Quantitative 337 (0-400) ng/mL Sodium (136-145) mmol/L Potassium (3.5-5.1) mmol/L Chloride (98-107) mmol/L Carbon Dioxide (21.0-32.0) mmol/L BUN (7-18) mg/dL Creatinine (0.51-1.17) mg/dL Est Cr Clr Drug Dosing mL/min Estimated GFR (MDRD) mL/min Glucose (70-99) mg/dL Lactic Acid (0.4-2.0) mmol/L Uric Acid (2.6-7.2) mg/dL Calcium (8.5-10.1) mg/dL Magnesium (1.8-2.4) mg/dL Total Bilirubin (0.2-1.0) mg/dL AST (15-37) U/L ALT (12-78) U/L Alkaline Phosphatase (46-116) IU/L Creatine Kinase (26-308) U/L Creatine Kinase Index (0.0-2.5) % CK-MB (CK-2) (0.00-3.60) ng/mL Troponin I (0.000-0.056) ng/mL NT-Pro-B Natriuret Pep (0-125) pg/mL Total Protein (6.4-8.2) g/dL Albumin (3.4-5.0) g/dL TSH, Ultra Sensitive (0.358-3.740) mIU/mL 07/28/20 07/28/20 Range/Units 11:37 11:37 WBC (4.0-10.2) K/uL RBC (4.33-5.41) M/uL Hgb (13.1-16.8) g/dL Hct (39.0-49.0) % MCV (84.0-98.0) fL MCH (28.2-33.3) pg MCHC (31.7-36.0) g/dL RDW (11.2-14.1) % Plt Count (150-350) K/uL Neut % (Auto) (45.0-80.0) % Lymph % (Auto) (10.0-50.0) % [place] % (Auto) (2.0-14.0) % Eos % (Auto) (0.0-5.0) % Baso % (Auto) (0.0-2.0) % Neut # (Auto) (1.40-7.00) K/uL Lymph # (Auto) (0.50-3.50) K/uL [place] # (Auto) (0.00-1.00) K/uL Eos # (Auto) (0.00-0.50) K/uL Baso # (Auto) (0.00-0.20) K/uL PT (9.5-12.0) SEC INR APTT (24.5-32.8) SEC D-Dimer, Quantitative (0-400) ng/mL Sodium 143 (136-145) mmol/L Potassium 4.6 (3.5-5.1) mmol/L Chloride 107 (98-107) mmol/L Carbon Dioxide 30.2 (21.0-32.0) mmol/L BUN 20 H (7-18) mg/dL Creatinine 1.72 H (0.51-1.17) mg/dL Est Cr Clr Drug Dosing 43.78 mL/min Estimated GFR (MDRD) 40 mL/min Glucose 98 (70-99) mg/dL Lactic Acid 1.0 (0.4-2.0) mmol/L Uric Acid 7.1 (2.6-7.2) mg/dL Calcium 8.4 L (8.5-10.1) mg/dL Magnesium 1.9 (1.8-2.4) mg/dL Total Bilirubin 0.6 (0.2-1.0) mg/dL AST 20 (15-37) U/L ALT 29 (12-78) U/L Alkaline Phosphatase 54 (46-116) IU/L Creatine Kinase 129 (26-308) U/L Creatine Kinase Index 2.2 (0.0-2.5) % CK-MB (CK-2) 2.80 (0.00-3.60) ng/mL Troponin I 0.047 (0.000-0.056) ng/mL NT-Pro-B Natriuret Pep 2113 H (0-125) pg/mL Total Protein 6.8 (6.4-8.2) g/dL Albumin 3.2 L (3.4-5.0) g/dL TSH, Ultra Sensitive 6.063 H (0.358-3.740) mIU/mL Meds: Medications Generic Name Dose Route Start Last Admin Trade Name Freq PRN Reason Stop Dose Admin Nitroglycerin 0.4 mg 07/28/20 11:29 07/28/20 11:43 Nitroglycerin 0.4 Mg Tab.Sl SL 07/29/20 11:30 0.4 mg ONETIME STA Administration Sodium Chloride 10 ml 07/28/20 11:28 Sodium Chloride 0.9% 10 Ml Syringe FLUSH ASDIRECTED PRN Keep Vein Open Discontinued Medications Generic Name Dose Route Start Last Admin Trade Name Freq PRN Reason Stop Dose Admin Aspirin 324 mg 07/28/20 11:28 07/28/20 11:37 Aspirin 81 Mg Tab.Chew CHEW 07/28/20 11:29 324 mg ONETIME ONE Administration Famotidine 40 mg 07/28/20 11:28 07/28/20 11:41 Famotidine 20 Mg/2 Ml Sdv IVPUSH 07/28/20 11:29 40 mg ONETIME ONE Administration Ticagrelor 180 mg 07/28/20 11:28 07/28/20 11:39 Ticagrelor 90 Mg Tab PO 07/28/20 11:29 180 mg ONETIME ONE Administration - Radiology Interpretation Free Text/Narrative:: court monitor shows mild sinus bradycardia with heart rate averaging in the mid to high 50s and occasionally in the 60s with very occasional PACs and mild sinus arrhythmia. Chest x-ray, portable, shows somewhat poor inspiratory film with moderate COPD changes and evidence of mild cardiomegaly, mild to moderate CHF, small left pleural effusion, and mildly elevated right hemidiaphragm. No definite pulmonary infiltrates, pneumothorax, etc. Departure - Departure Time of Disposition: 13:40 Disposition: Admitted As Inpatient 68 Condition: Fair Clinical Impression: Mixed anxiety depressive disorder, Renal insufficiency, Hypocalcemia, Hypoalbum inemia, Hypothyroidism (acquired), Dyslipidemia GERD (gastroesophageal reflux disease) Qualifiers: Esophagitis presence: without esophagitis Qualified Code(s): K21.9 - Gastro- esophageal reflux disease without esophagitis Hypertension Qualifiers: Hypertension type: essential hypertension Qualified Code(s): I10 - Essential (primary) hypertension CHF (congestive heart failure) Qualifiers: Heart failure type: systolic Heart failure chronicity: acute on chronic Qualified Code(s): I50.23 - Acute on chronic systolic (congestive) heart failure COPD (chronic obstructive pulmonary disease) Qualifiers: COPD type: emphysema Emphysema type: panlobular Qualified Code(s): J43.1 - Panlobular emphysema Anemia Qualifiers: Anemia type: unspecified type Qualified Code(s): D64.9 - Anemia, unspecified Chest pain Qualifiers: Chest pain type: precordial pain Qualified Code(s): R07.2 - Precordial pain Diabetes mellitus Qualifiers: Diabetes mellitus type: type 2 Diabetes mellitus chcf insulin use: without watcher [employer] long goods use Diabetes mellitus complication status: without complication Qualified Code(s): E11.9 - Type 2 diabetes mellitus without complications Referrals: Vivian García PA [Primary Care Provider] - Forms: ED Department Discharge Care Plan Goals: See plan Sepsis Event Note (ED) - Focused Exam Vital Signs: Vital Signs Temp Pulse Resp BP BP Pulse Ox Pulse Ox 07/28/20 13:01 58 L 15 193/95 H 97 07/28/20 13:00 57 L 16 183/83 H 98 07/28/20 12:16 65 17 177/77 H 97 07/28/20 12:00 57 L 16 182/84 H 97 07/28/20 11:46 60 19 174/80 H 97 07/28/20 11:43 192/77 H 07/28/20 11:34 62 18 192/77 H 94 L 07/28/20 11:28 96 07/28/20 11:17 36.3 C 62 23 H 185/79 H 96 - Problem List & Annotations (1) Chest pain SNOMED Code(s): 78510242 Code(s): R07.9 - CHEST PAIN, UNSPECIFIED Status: Acute Priority: High Current Visit: Yes Onset Date: 06/14/19 Annotation/Comment:: Chest pain protocol initiate immediately upon patient's arrival to the emergency room. Note the patient was evaluated in this facility on 06/14/2019 with subsequent transfer to [facility] with negative Lexiscan in that facility. Initiate standard rule out OR orders. Improvement of patient's blood pressure and chest pain with 1 sublingual nitroglycerin tablet in the emergency room. Further cardiology consultation, patient transfer, etc. depending on his clinical course. Patient may benefit from repeat Cardiolite stress test, either exercise or dobutamine, in this facility once his cardiac status is stable size. Low threshold for patient transfer and heart catheterization secondary to recurrent symptoms and multiple cardiac risk factors. Note history of diabetic nephropathy, however. Qualifiers: Chest pain type: precordial pain Qualified Code(s): R07.2 - Precordial pain (2) CHF (congestive heart failure) SNOMED Code(s): 36254410 Code(s): I50.9 - HEART FAILURE, UNSPECIFIED Status: Acute Priority: High Current Visit: Yes Onset Date: 06/14/19 Annotation/Comment:: Return CHF with IV Lasix therapy to be initiated at time of admission. Note recent echocardiogram on 06/15/2019 with consideration of repeating this evaluation on an outpatient basis. Further medication adjustments depending on his clinical course. Qualifiers: Heart failure type: systolic Heart failure chronicity: acute on chronic Qualified Code(s): I50.23 - Acute on chronic systolic (congestive) heart failure (3) Hypertension SNOMED Code(s): 89484778 Code(s): I10 - ESSENTIAL (PRIMARY) HYPERTENSION Status: Chronic Priority: High Current Visit: Yes Annotation/Comment:: Blood pressures have been under somewhat poor control during the last few days by his history as of above with recent multiple medication adjustments on 07/27 by his regular provider by patient history. Patient will likely need further medication adjustment during this hospitalization requiring acute care rather than observation status for his CHF and chest pain. Qualifiers: Hypertension type: essential hypertension Qualified Code(s): I10 - Essential (primary) hypertension (4) Anemia SNOMED Code(s): 877395473 Code(s): D64.9 - ANEMIA, UNSPECIFIED Status: Acute Priority: Medium Current Visit: Yes Onset Date: 06/14/19 Annotation/Comment:: History of mild anemia, which is stable per medical records. Note macrocytic anemia at this time with history of chronic diabetic nephropathy. Further work-up and tomorrow's blood work. No evidence of acute GI bleed, etc. Qualifiers: Anemia type: unspecified type Qualified Code(s): D64.9 - Anemia, unspecified (5) COPD (chronic obstructive pulmonary disease) SNOMED Code(s): 22753429 Code(s): J44.9 - CHRONIC OBSTRUCTIVE PULMONARY DISEASE, UNSPECIFIED Status: Acute Priority: Medium Current Visit: Yes Onset Date: 06/14/19 Annotation/Comment:: Note history of tobacco use. COPD by chest x-ray. Consider PFTs once his cardiac status, etc. has improved. No recent fever or bronchitic type symptoms. Qualifiers: COPD type: emphysema Emphysema type: panlobular Qualified Code(s): J43.1 - Panlobular emphysema (6) Dyslipidemia SNOMED Code(s): 103743944 Code(s): E78.5 - HYPERLIPIDEMIA, UNSPECIFIED Status: Chronic Priority: Medium Current Visit: Yes Annotation/Comment:: Lipid panel in the a.m. (7) GERD (gastroesophageal reflux disease) SNOMED Code(s): 835306085 Code(s): K21.9 - GASTRO-ESOPHAGEAL REFLUX DISEASE WITHOUT ESOPHAGITIS Status: Chronic Priority: Medium Current Visit: Yes Annotation/Comment:: High-dose IV Pepcid given in the emergency room as GI prophylaxis. Continue to observe closely for now with collection of Hemoccult and H. pylori stool antigen during this hospitalization. Previously stable by history. Qualifiers: Esophagitis presence: without esophagitis Qualified Code(s): K21.9 - Gastro-esophageal reflux disease without esophagitis (8) Hypoalbuminemia SNOMED Code(s): 598583791 Code(s): E88.09 - OTH DISORDERS OF PLASMA-PROTEIN METABOLISM, NEC Status: Acute Priority: Medium Current Visit: Yes Onset Date: 07/28/20 Annotation/Comment:: Observe for now. Note patient obesity. (9) Hypocalcemia SNOMED Code(s): 1105964 Code(s): E83.51 - HYPOCALCEMIA Status: Acute Priority: Medium Current Visit: Yes Onset Date: 07/28/20 Annotation/Comment:: Observe for now. (10) Hypothyroidism (acquired) SNOMED Code(s): 752310854 Code(s): E03.9 - HYPOTHYROIDISM, UNSPECIFIED Status: Acute Priority: Medium Current Visit: Yes Onset Date: 07/28/20 Annotation/Comment:: Mildly elevated TSH today. No other hypothyroid type symptoms. Consider initiation of low-dose Synthroid supplementation during this hospitalization and/or repeat TSH by his regular provider in about 4 weeks. (11) Renal insufficiency SNOMED Code(s): 642250331, 175066798 Code(s): N28.9 - DISORDER OF KIDNEY AND URETER, UNSPECIFIED Status: Chronic Priority: Medium Current Visit: Yes Onset Date: 06/14/19 Annotation/Comment:: Stable diabetic nephropathy per our medical records. Continue to observe his renal status and hyperuricemia closely secondary to r equired IV Lasix therapy during this hospitalization. (12) Diabetes mellitus SNOMED Code(s): 32881682 Code(s): E11.9 - TYPE 2 DIABETES MELLITUS WITHOUT COMPLICATIONS Status: Chronic Priority: Medium Current Visit: Yes Annotation/Comment:: Glycosylated hemoglobin in the a.m. Patient should be encouraged to take his home Accu-Cheks on a more consistent basis initially twice daily. Weight loss in moderation is also advisable. Qualifiers: Diabetes mellitus type: type 2 Diabetes mellitus watcher [employer] insulin use: without chcf use Diabetes mellitus complication status: without complication Qualified Code(s): E11.9 - Type 2 diabetes mellitus without complications (13) Mixed anxiety depressive disorder SNOMED Code(s): 596503097 Code(s): F41.8 - OTHER SPECIFIED ANXIETY DISORDERS Status: Chronic Priority: Medium Current Visit: Yes Annotation/Comment:: Stable by history - Problem List Review Problem List Initiated/Reviewed/Updated: Yes - My Orders Last 24 Hours: My Active Orders 07/28/20 Breakfast Nothing per Oral Now Diet [DIET] 07/28/20 11:28 Cardiac Monitoring [RC] . DIRECTED EKG Documentation Completion [RC] ASDIRECTED Oxygen Therapy, ED [RC] PRN Peripheral IV Care [RC] . DIRECTED Pulse Oximetry [RC] CONTINUOUS Up With Assistance [RC] PFP Vital Signs [RC] PFP Chest 1V Frontal [CR] Stat Sodium Chloride 0.9% [Saline Flush] 10 ml FLUSH ASDIRECTED PRN Obtain Past Medical Record [OM.PC] Urgent Peripheral IV Insertion Adult [OM.PC] Stat Resuscitation Status Stat 07/28/20 11:29 Nitroglycerin [Nitrostat] 0.4 mg SL ONETIME STA - Assessment/Plan Admission H&P: Please use this note as an admission H&P Last 24 Hours: My Active Orders 07/28/20 Breakfast Nothing per Oral Now Diet [DIET] 07/28/20 11:28 Cardiac Monitoring [RC] . DIRECTED EKG Documentation Completion [RC] ASDIRECTED Oxygen Therapy, ED [RC] PRN Peripheral IV Care [RC] . DIRECTED Pulse Oximetry [RC] CONTINUOUS Up With Assistance [RC] PFP Vital Signs [RC] PFP Chest 1V Frontal [CR] Stat Sodium Chloride 0.9% [Saline Flush] 10 ml FLUSH ASDIRECTED PRN Obtain Past Medical Record [OM.PC] Urgent Peripheral IV Insertion Adult [OM.PC] Stat Resuscitation Status Stat 07/28/20 11:29 Nitroglycerin [Nitrostat] 0.4 mg SL ONETIME STA Assessment:: As above Plan: As above. Extensive precautions were given to the patient, who is in agreement with the treatment plan. The patient will require about 3-4 days of inpatient/acute care secondary to multiple health problems as above. Es barrett provider assumes care on 07/29 and I resume care on 07/30/2020
[2020-07-28] MEDS ORDERED: Nitroglycerin 0.4 MG Tab.SL SL STA ×2 (11:29→14:55)
[2020-07-28 12:00] LABS: PTT,PARTIAL THROMBOPLSTIN TIME 27.1 SEC (24.5-32.8)
[2020-07-28] MEDS ORDERED: Temazepam 15 MG Cap PO PRN (14:26)
[2020-07-28] MEDS ORDERED: Lisinopril 10 MG Tab PO SCH (15:00)
[2020-07-28] MEDS ORDERED: Enoxaparin 30 MG/0.3 ML Syringe SUBCUT SCH (15:00)
[2020-07-28] MEDS: Furosemide 40 MG/4 ML VIAL IVPUSH SCH ×2 (15:29→22:34)
[2020-07-28] MEDS ORDERED: Isosorbide Mononitrate 60 MG Tab.ER PO SCH (18:00)
[2020-07-28] MEDS: Potassium Chloride 20 MEQ Tab.ER PO SCH (19:02)
[2020-07-28] MEDS: Acetaminophen 325 MG Tab PO PRN (22:37)
[2020-07-28] MEDS: Spironolactone 25 MG Tab PO SCH (22:41)
[2020-07-29] MEDS: Acetaminophen 325 MG Tab PO PRN (03:28)
[2020-07-29 07:20] LABS: HEMOGLOBIN A1C 6.5 % (4.3-5.7)
[2020-07-29] MEDS ORDERED: Lisinopril 5 MG Tab PO SCH (08:00)
[2020-07-29] MEDS ORDERED: Metoprolol Succinate 50 MG Tab.ER PO SCH (08:00)
[2020-07-29] MEDS ORDERED: Aspirin 325 MG Tab PO SCH (08:00)
[2020-07-29] MEDS ORDERED: Cyanocobalamin (Vitamin B12) 1,000 MCG Tab PO SCH (08:00)
[2020-07-29] MEDS ORDERED: Sertraline 50 MG Tab PO SCH (08:00)
[2020-07-29] MEDS ORDERED: Gabapentin 300 MG Cap PO SCH (08:00)
[2020-07-29 08:22] VITALS: BP 140/81; PULSE 61
[2020-07-29] MEDS: Spironolactone 25 MG Tab PO SCH (08:25)
[2020-07-29] MEDS: Potassium Chloride 20 MEQ Tab.ER PO SCH (08:26)
[2020-07-29] MEDS: Furosemide 40 MG/4 ML VIAL IVPUSH SCH (08:26)
--- NOTE | 2020-07-29 18:18 | PCM.DCSUM1 ---
Discharge Summary - Hospital Course Free Text/Narrative:: Pt. was admitted with complaints of substernal chest pain, CHF, and hypertension after being seen at [facility]. Please see Dr. Daniels's H and P. Pt. states that he is feeling well today and requests discharge. Pt. states that he is no longer short of breath. He was diuresed with IV lasix. Nursing states that he was on metoprolol tartrate 25mg this AM. That was changed this AM to metoprolol succinate 50mg daily. Pt. had been started on Imdur 60mg daily prior to shift change, as well as spironolactone 12.5mg BID. Implored patient several times to stay another day in the hospital to ensure that he was tolerating these changes. Pt. refused, stating he will follow-up in the clinic for repeat BP tomorrow and labs later this week. Pt. will undergo cardiolyte in the near future. Order was filled out. Diagnosis: Stroke: No - Discharge Data Discharge Date: 07/29/20 Discharge Disposition: Home, Self-Care 01 Condition: Good - Referral to Home Health Primary Care Physician: ABHI Morales - Discharge Diagnosis/Problem(s) (1) CHF (congestive heart failure) SNOMED Code(s): 01856764 ICD Code: I50.9 - HEART FAILURE, UNSPECIFIED Status: Acute Priority: High Onset Date: 06/14/19 Problem Details: Return CHF with IV Lasix therapy to be initiated at time of admission. Note recent echocardiogram on 06/15/2019 with consideration of repeating this evaluation on an outpatient basis. Further medication adjustments depending on his clinical course. Qualifiers: Heart failure type: systolic Heart failure chronicity: acute on chronic Qualified Code(s): I50.23 - Acute on chronic systolic (congestive) heart failure (2) Chest pain SNOMED Code(s): 85821132 ICD Code: R07.9 - CHEST PAIN, UNSPECIFIED Status: Acute Priority: High Onset Date: 06/14/19 Problem Details: Chest pain protocol initiate immediately upon patient's arrival to the emergency room. Note the patient was evaluated in this facility on 06/14/2019 with subsequent transfer to [facility] with negative Lexiscan in that facility. Initiate standard rule out [place] orders. Improvement of patient's blood pressure and chest pain with 1 sublingual nitroglycerin tablet in the emergency room. Further cardiology consultation, patient transfer, etc. depending on his clinical course. Patient may benefit from repeat Cardiolite stress test, either exercise or dobutamine, in this facility once his cardiac status is stable size. Low threshold for patient transfer and heart catheterization secondary to recurrent symptoms and multiple cardiac risk factors. Note history of diabetic nephropathy, however. Qualifiers: Chest pain type: precordial pain Qualified Code(s): R07.2 - Precordial pain - Discharge Plan Home Medications: Home Meds Cyanocobalamin (Vitamin B-12) [Vitamin B-12] 1 tab PO DAILY 11/14/15 [History] Gabapentin [Neurontin] 300 mg PO DAILY 11/14/15 [History] Sertraline [Zoloft] 50 mg PO DAILY 06/14/19 [History] Aspirin 325 mg PO DAILY 02/05/20 [History] Metoprolol Succinate [Toprol Xl] 50 mg PO DAILY 02/05/20 [History] Acetaminophen [Tylenol] 2 tab PO Q6H PRN 07/28/20 [History] Furosemide [Lasix] 40 mg PO DAILY PRN 07/28/20 [History] [place]-3/DHA/Epa/Fish Oil [Super Dha Gems Softgel] 1 cap PO Q7D 07/28/20 [History] lisinopriL [Lisinopril] 5 mg PO DAILY 07/28/20 [History] lisinopriL [Lisinopril] 10 mg PO 1500 07/28/20 [History] Isosorbide Mononitrate [Imdur] 60 mg PO QPM #30 tab.er 07/29/20 [Rx] Patient Handouts: Heart Failure, Self Care, Nonspecific Chest Pain, Adult, [id number] Forms: ED Department Discharge Referrals: Vivian García PA [Primary Care Provider] - - Discharge Summary/Plan Comment DC Time >30 min.: Yes Discharge Summary/Plan Comment: Home to rest. Continue with home medications. Watch salt consumption. Start Imdur 60mg once daily. Recheck blood pressure tomorrow in clinic. You should also have repeat labs in 7-10 days. Pt. will be contacted for time for stress test. - General Info Functional Status: Reports: Pain Controlled, Tolerating Diet, Ambulating - Review of Systems General: Reports: No Symptoms HEENT: Reports: No Symptoms Pulmonary: Reports: No Symptoms Cardiovascular: Reports: No Symptoms Gastrointestinal: Reports: No Symptoms Genitourinary: Reports: No Symptoms Musculoskeletal: Reports: No Symptoms Skin: Reports: No Symptoms Neurological: Reports: No Symptoms Psychiatric: Reports: No Symptoms - Patient Data Vitals - Most Recent: Last Vital Signs Temp 36.6 C 07/29/20 08:00 Pulse 61 07/29/20 08:25 Resp 16 07/29/20 08:00 BP 140/81 07/29/20 08:25 Pulse Ox 94 L 07/29/20 08:00 Weight - Most Recent: 115.212 kg I&O - Last 24 hours: Intake & Output 07/29/20 07/29/20 07/29/20 06:59 14:59 22:59 Intake Total 240 Output Total 1150 Balance -1150 240 Lab Results - Last 24 hrs: Laboratory Results - last 24 hr 07/28/20 07/29/20 07/29/20 Range/Units 21:08 06:40 06:40 WBC 7.2 (4.0-10.2) K/uL RBC 3.57 L (4.33-5.41) M/uL Hgb 11.9 L (13.1-16.8) g/dL Hct 35.5 L (39.0-49.0) % MCV 99.4 H (84.0-98.0) fL MCH 33.3 (28.2-33.3) pg MCHC 33.5 (31.7-36.0) g/dL RDW 14.9 H (11.2-14.1) % Plt Count 226 (150-350) K/uL Neut % (Auto) 70.2 (45.0-80.0) % Lymph % (Auto) 19.3 (10.0-50.0) % [place] % (Auto) 7.1 (2.0-14.0) % Eos % (Auto) 2.8 (0.0-5.0) % Baso % (Auto) 0.6 (0.0-2.0) % Neut # (Auto) 5.03 (1.40-7.00) K/uL Lymph # (Auto) 1.38 (0.50-3.50) K/uL [place] # (Auto) 0.51 (0.00-1.00) K/uL Eos # (Auto) 0.20 (0.00-0.50) K/uL Baso # (Auto) 0.04 (0.00-0.20) K/uL Sodium 142 (136-145) mmol/L Potassium 4.6 (3.5-5.1) mmol/L Chloride 104 (98-107) mmol/L Carbon Dioxide 27.7 (21.0-32.0) mmol/L BUN 26 H (7-18) mg/dL Creatinine 2.02 H (0.51-1.17) mg/dL Est Cr Clr Drug Dosing 36.71 mL/min Estimated GFR (MDRD) 33 mL/min Glucose 143 H (70-99) mg/dL Hemoglobin A1c (4.3-5.7) % Calcium 9.0 (8.5-10.1) mg/dL Iron (50-175) ug/dL TIBC (250-450) ug/dL % Saturation Ferritin (8-388) ng/mL Total Bilirubin 0.8 (0.2-1.0) mg/dL AST 19 (15-37) U/L ALT 27 (12-78) U/L Alkaline Phosphatase 53 (46-116) IU/L Creatine Kinase 123 108 (26-308) U/L Creatine Kinase Index 2.0 1.8 (0.0-2.5) % CK-MB (CK-2) 2.50 1.90 (0.00-3.60) ng/mL Troponin I 0.044 0.028 (0.000-0.056) ng/mL NT-Pro-B Natriuret Pep 2169 H (0-125) pg/mL Total Protein 6.8 (6.4-8.2) g/dL Albumin 3.2 L (3.4-5.0) g/dL Triglycerides 174 H (30-150) mg/dL Cholesterol 220 H (100-200) mg/dL LDL Cholesterol, Calc 150 H (0-100) mg/dL HDL Cholesterol 35 L (40-60) mg/dL Vitamin B12 1477 H (193-986) pg/mL Folate 17.6 (8.6-58.9) ng/mL 07/29/20 07/29/20 Range/Units 06:40 06:40 WBC (4.0-10.2) K/uL RBC (4.33-5.41) M/uL Hgb (13.1-16.8) g/dL Hct (39.0-49.0) % MCV (84.0-98.0) fL MCH (28.2-33.3) pg MCHC (31.7-36.0) g/dL RDW (11.2-14.1) % Plt Count (150-350) K/uL Neut % (Auto) (45.0-80.0) % Lymph % (Auto) (10.0-50.0) % [place] % (Auto) (2.0-14.0) % Eos % (Auto) (0.0-5.0) % Baso % (Auto) (0.0-2.0) % Neut # (Auto) (1.40-7.00) K/uL Lymph # (Auto) (0.50-3.50) K/uL [place] # (Auto) (0.00-1.00) K/uL Eos # (Auto) (0.00-0.50) K/uL Baso # (Auto) (0.00-0.20) K/uL Sodium (136-145) mmol/L Potassium (3.5-5.1) mmol/L Chloride (98-107) mmol/L Carbon Dioxide (21.0-32.0) mmol/L BUN (7-18) mg/dL Creatinine (0.51-1.17) mg/dL Est Cr Clr Drug Dosing mL/min Estimated GFR (MDRD) mL/min Glucose (70-99) mg/dL Hemoglobin A1c 6.5 H (4.3-5.7) % Calcium (8.5-10.1) mg/dL Iron 81 (50-175) ug/dL TIBC 253 (250-450) ug/dL % Saturation 32.93719 Ferritin 441 H (8-388) ng/mL Total Bilirubin (0.2-1.0) mg/dL AST (15-37) U/L ALT (12-78) U/L Alkaline Phosphatase (46-116) IU/L Creatine Kinase (26-308) U/L Creatine Kinase Index (0.0-2.5) % CK-MB (CK-2) (0.00-3.60) ng/mL Troponin I (0.000-0.056) ng/mL NT-Pro-B Natriuret Pep (0-125) pg/mL Total Protein (6.4-8.2) g/dL Albumin (3.4-5.0) g/dL Triglycerides (30-150) mg/dL Cholesterol (100-200) mg/dL LDL Cholesterol, Calc (0-100) mg/dL HDL Cholesterol (40-60) mg/dL Vitamin B12 (193-986) pg/mL Folate (8.6-58.9) ng/mL Med Orders - Current: Current Medications Discontinued Medications Acetaminophen (Acetaminophen 325 Mg Tab) 650 mg PO Q4H PRN PRN Reason: Pain Last Admin: 07/29/20 03:28 Dose: 650 mg Documented by: Aspirin (Aspirin 81 Mg Tab.Chew) 324 mg CHEW ONETIME ONE Stop: 07/28/20 11:29 Last Admin: 07/28/20 11:37 Dose: 324 mg Documented by: Aspirin (Aspirin 325 Mg Tab) 325 mg PO DAILY COUNT INCLUDES THE [facility] Last Admin: 07/29/20 08:24 Dose: 325 mg Documented by: Cyanocobalamin (Cyanocobalamin (Vitamin B12) 1,000 Mcg Tab) 1,000 mcg PO DAILY COUNT INCLUDES THE [facility] Last Admin: 07/29/20 08:24 Dose: 1,000 mcg Documented by: Enoxaparin Sodium (Enoxaparin 30 Mg/0.3 Ml Syringe) 30 mg SUBCUT Q24H COUNT INCLUDES THE [facility] Last Admin: 07/28/20 15:29 Dose: 30 mg Documented by: Famotidine (Famotidine 20 Mg/2 Ml Sdv) 40 mg IVPUSH ONETIME ONE Stop: 07/28/20 11:29 Last Admin: 07/28/20 11:41 Dose: 40 mg Documented by: Furosemide (Furosemide 40 Mg/4 Ml Vial) 40 mg IVPUSH Q8H COUNT INCLUDES THE [facility] Last Admin: 07/29/20 08:26 Dose: Not Given Documented by: Gabapentin (Gabapentin 300 Mg Cap) 300 mg PO DAILY COUNT INCLUDES THE [facility] Last Admin: 07/29/20 08:24 Dose: 300 mg Documented by: Isosorbide Mononitrate (Isosorbide Mononitrate 60 Mg Tab.Er) 60 mg PO QPM COUNT INCLUDES THE [facility] Last Admin: 07/28/20 19:02 Dose: 60 mg Documented by: Lisinopril (Lisinopril 5 Mg Tab) 5 mg PO DAILY COUNT INCLUDES THE [facility] Last Admin: 07/29/20 08:24 Dose: 5 mg Documented by: Lisinopril (Lisinopril 10 Mg Tab) 10 mg PO DAILY@1500 COUNT INCLUDES THE [facility] Last Admin: 07/28/20 15:29 Dose: 10 mg Documented by: Metoprolol Succinate (Metoprolol Succinate 50 Mg Tab.Er) 50 mg PO DAILY COUNT INCLUDES THE [facility] Last Admin: 07/29/20 08:25 Dose: 50 mg Documented by: Nitroglycerin (Nitroglycerin 0.4 Mg Tab.Sl) 0.4 mg SL ONETIME STA Stop: 07/29/20 11:30 Last Admin: 07/28/20 11:43 Dose: 0.4 mg Documented by: Nitroglycerin (Nitroglycerin 0.4 Mg Tab.Sl) 0.4 mg SL ONETIME STA Stop: 07/29/20 14:56 Last Admin: 07/28/20 16:11 Dose: 0.4 mg Documented by: Potassium Chloride (Potassium Chloride 20 Meq Tab.Er) 20 meq PO TID COUNT INCLUDES THE [facility] Last Admin: 07/29/20 08:26 Dose: 20 meq Documented by: Sertraline HCl (Sertraline 50 Mg Tab) 50 mg PO DAILY COUNT INCLUDES THE [facility] Last Admin: 07/29/20 08:25 Dose: 50 mg Documented by: Sodium Chloride (Sodium Chloride 0.9% 10 Ml Syringe) 10 ml FLUSH ASDIRECTED PRN PRN Reason: Keep Vein Open Last Admin: 07/28/20 15:30 Dose: 10 ml Documented by: Sodium Chloride (Sodium Chloride 0.9% 10 Ml Syringe) 10 ml FLUSH Q12HR PRN PRN Reason: Keep Vein Open Last Admin: 07/28/20 22:39 Dose: 10 ml Documented by: Spironolactone (Spironolactone 25 Mg Tab) 12.5 mg PO BID COUNT INCLUDES THE [facility] Last Admin: 07/29/20 08:25 Dose: 12.5 mg Documented by: Temazepam (Temazepam 15 Mg Cap) 15 mg PO BEDTIME PRN PRN Reason: Insomnia Last Admin: 07/29/20 03:31 Dose: 15 mg Documented by: Ticagrelor (Ticagrelor 90 Mg Tab) 180 mg PO ONETIME ONE Stop: 07/28/20 11:29 Last Admin: 07/28/20 11:39 Dose: 180 mg Documented by: - Exam General: Reports: Alert, Oriented HEENT: Reports: EOMI, Mucous Membr. Moist/[place] Neck: Reports: Supple Lungs: Reports: Clear to Auscultation, Normal Respiratory Effort Cardiovascular: Reports: Regular Rate, Regular Rhythm GI/Abdominal Exam: Soft, Non-Tender, No Organomegaly, No Distention (Male) Exam: No Hernia Rectal (Males) Exam: Deferred Back Exam: Reports: Normal Inspection, Full Range of Motion Extremities: Normal Inspection, Normal Range of Motion, Non-Tender, No Pedal Edema, Normal Capillary Refill Skin: Reports: Warm, Dry, Intact Neurological: Reports: No New Focal Deficit Psy/Mental Status: Reports: Alert, Normal Affect, Normal Mood
== END 2020-07-29 10:55 | disposition home or self-care (01) | DRG 291 ==
LOC: LL.ED 11:10 → LL.MS 13:16
PROVIDERS: ADMIT Family Medicine; ATTEND Family Medicine
DX: I11.0 Hypertensive heart disease with heart failure (principal); I13.0 Hypertensive heart and chronic kidney disease with heart failure and stage 1 through stage 4 chronic kidney disease, or unspecified chronic kidney disease; I50.23 Acute on chronic systolic (congestive) heart failure; H91.90 Unspecified hearing loss, unspecified ear; R07.2 Precordial pain; E11.9 Type 2 diabetes mellitus without complications; H54.7 Unspecified visual loss; H91.93 Unspecified hearing loss, bilateral; E78.00 Pure hypercholesterolemia, unspecified; I49.9 Cardiac arrhythmia, unspecified; I73.9 Peripheral vascular disease, unspecified; F41.8 Other specified anxiety disorders; K21.9 Gastro-esophageal reflux disease without esophagitis; N40.0 Benign prostatic hyperplasia without lower urinary tract symptoms; N28.9 Disorder of kidney and ureter, unspecified; N18.9 Chronic kidney disease, unspecified; E11.21 Type 2 diabetes mellitus with diabetic nephropathy; M19.90 Unspecified osteoarthritis, unspecified site; G89.29 Other chronic pain; M54.9 Dorsalgia, unspecified; M10.9 Gout, unspecified; M54.2 Cervicalgia; F41.9 Anxiety disorder, unspecified; F32.9 Major depressive disorder, single episode, unspecified; E83.42 Hypomagnesemia; E11.22 Type 2 diabetes mellitus with diabetic chronic kidney disease; D64.9 Anemia, unspecified; J43.1 Panlobular emphysema; E78.5 Hyperlipidemia, unspecified; E88.09 Other disorders of plasma-protein metabolism, not elsewhere classified; E83.51 Hypocalcemia; E03.9 Hypothyroidism, unspecified; Z79.899 Other long term (current) drug therapy; Z86.73 Personal history of transient ischemic attack (TIA), and cerebral infarction without residual deficits; Z87.01 Personal history of pneumonia (recurrent); Z98.890 Other specified postprocedural states; Z87.891 Personal history of nicotine dependence; Z79.82 Long term (current) use of aspirin; Z88.8 Allergy status to other drugs, medicaments and biological substances; Z88.0 Allergy status to penicillin; Z88.1 Allergy status to other antibiotic agents
CPT/HCPCS: 36415; 71045; 80053; 80061; 82550; 82553; 82607; 82728; 82746; 83036; 83540; 83550; 83605; 83735; 83880; 84443; 84484; 84550; 85025; 85379; 85610; 85730; 93005; 96374; 99284-25; A9270-GY; J1650; J1940; J3490

== ENCOUNTER 2021-06-13 16:22 | Observation (INO) | payer MEDICARE, BC ==
[2021-06-13 17:31] LABS: ANION GAP 7.8 meq/L (7-15)
[2021-06-13] MEDS ORDERED: Ondansetron 4 MG Tab.DIS PO PRN (19:10)
[2021-06-13] MEDS ORDERED: Polyethylene Glycol 3350 Powder 17 GM Packet PO PRN (19:10)
[2021-06-13] MEDS ORDERED: Sodium Chloride 0.9% 10 ML Syringe FLUSH PRN (19:10)
[2021-06-13] MEDS ORDERED: Benzonatate 100 MG Cap PO PRN (19:17)
[2021-06-13] MEDS ORDERED: Glucagon,Human Recombinant 1 MG Vial IM PRN (19:23)
[2021-06-13] MEDS ORDERED: 50% Dextrose in Water 50 ML Syringe IVPUSH PRN (19:23)
[2021-06-13] MEDS ORDERED: Sodium Chloride 0.9% 1,000 ML IV SCH (19:30)
[2021-06-13] MEDS ORDERED: Pravastatin 20 MG Tab PO SCH (20:00)
[2021-06-13] MEDS: Acetaminophen 325 MG Tab PO PRN (20:45)
[2021-06-13] MEDS: Insulin Lispro 100 Units/ML 3 ML Vial SUBCUT SCH (20:45)
[2021-06-13] MEDS: Heparin Sodium 5,000 Units/ML Vial SUBCUT SCH (20:50)
[2021-06-14] MEDS: Acetaminophen 325 MG Tab PO PRN ×2 (03:43→08:48)
[2021-06-14] MEDS: Heparin Sodium 5,000 Units/ML Vial SUBCUT SCH ×2 (03:44→11:49)
[2021-06-14] MEDS ORDERED: Aspirin 325 MG Tab PO SCH (08:00)
[2021-06-14] MEDS ORDERED: Losartan 50 MG Tab PO SCH (08:00)
[2021-06-14] MEDS ORDERED: Ezetimibe 10 MG Tab PO SCH (08:00)
[2021-06-14] MEDS ORDERED: Clopidogrel 75 MG Tab PO SCH (08:00)
[2021-06-14] MEDS ORDERED: Metoprolol Succinate 50 MG Tab.ER PO SCH (08:00)
[2021-06-14] MEDS ORDERED: Levothyroxine 25 MCG Tab PO SCH (08:00)
[2021-06-14] MEDS ORDERED: Cholecalciferol (Vitamin D3) 5,000 UNIT Tab PO SCH (08:00)
[2021-06-14] MEDS ORDERED: Furosemide 40 MG Tab PO SCH (08:00)
[2021-06-14] MEDS ORDERED: Vitamin B Complex Tab PO SCH (08:00)
[2021-06-14] MEDS ORDERED: Sertraline 50 MG Tab PO SCH (08:00)
[2021-06-14] MEDS: Insulin Lispro 100 Units/ML 3 ML Vial SUBCUT SCH ×3 (08:57→17:42)
[2021-06-14 10:36] LABS: ANION GAP 10.7 meq/L (7-15)
[2021-06-14] MEDS ORDERED: Sodium Chloride 0.9% 1,000 ML IV SCH (12:15)
[2021-06-14] MEDS ORDERED: Furosemide 20 MG Tab PO SCH (14:00)
[2021-06-14 17:33] VITALS: BP 163/69; PULSE 55
[2021-06-14] MEDS ORDERED: Isosorbide Mononitrate 60 MG Tab.ER PO SCH (18:00)
== END 2021-06-14 17:50 | disposition home or self-care (01) ==
LOC: LL.ED 16:22 → LL.MS 18:32
PROVIDERS: ADMIT Hospitalist; ATTEND Hospitalist
DX: N17.9 Acute kidney failure, unspecified (principal); U07.1 COVID-19; I13.0 Hypertensive heart and chronic kidney disease with heart failure and stage 1 through stage 4 chronic kidney disease, or unspecified chronic kidney disease; N18.30 Chronic kidney disease, stage 3 unspecified; I50.32 Chronic diastolic (congestive) heart failure; E11.42 Type 2 diabetes mellitus with diabetic polyneuropathy; E11.22 Type 2 diabetes mellitus with diabetic chronic kidney disease; E11.51 Type 2 diabetes mellitus with diabetic peripheral angiopathy without gangrene; E11.69 Type 2 diabetes mellitus with other specified complication; M86.8X8 Other osteomyelitis, other site; I25.119 Atherosclerotic heart disease of native coronary artery with unspecified angina pectoris; E78.2 Mixed hyperlipidemia; E03.9 Hypothyroidism, unspecified; J44.9 Chronic obstructive pulmonary disease, unspecified; K21.9 Gastro-esophageal reflux disease without esophagitis; N40.0 Benign prostatic hyperplasia without lower urinary tract symptoms; M13.89 Other specified arthritis, multiple sites; M10.9 Gout, unspecified; F41.8 Other specified anxiety disorders; E66.01 Morbid (severe) obesity due to excess calories; Z68.35 Body mass index [BMI] 35.0-35.9, adult; H91.93 Unspecified hearing loss, bilateral; E78.00 Pure hypercholesterolemia, unspecified; D63.1 Anemia in chronic kidney disease; M54.9 Dorsalgia, unspecified; M54.2 Cervicalgia; G89.29 Other chronic pain; I65.23 Occlusion and stenosis of bilateral carotid arteries; Z88.0 Allergy status to penicillin; Z88.8 Allergy status to other drugs, medicaments and biological substances; Z88.1 Allergy status to other antibiotic agents; Z88.6 Allergy status to analgesic agent; Z88.5 Allergy status to narcotic agent; Z90.49 Acquired absence of other specified parts of digestive tract; Z79.890 Hormone replacement therapy; Z79.02 Long term (current) use of antithrombotics/antiplatelets; Z79.82 Long term (current) use of aspirin; Z79.899 Other long term (current) drug therapy; Z87.891 Personal history of nicotine dependence; Z87.19 Personal history of other diseases of the digestive system; Z86.73 Personal history of transient ischemic attack (TIA), and cerebral infarction without residual deficits
CPT/HCPCS: 36415; 71045; 80048; 80053; 82947; 85025; 85027; 85379; 85610; 86140; 96372; 99217; 99220; 99285-25; A9270-GY; G0378; J1644; J1815-GY; J7030

== ENCOUNTER 2023-11-04 11:07 | Emergency (ER) | payer MEDICARE ==
[2023-11-04 11:45] LABS: BASOPHILS ABSOLUTE AUTO 0.02 K/uL (0.00-0.20); BASOPHILS PERCENT AUTO 0.3 % (0.0-2.0); EOSINOPHILS ABSOLUTE AUTO 0.03 K/uL (0.00-0.50); EOSINOPHILS PERCENT AUTO 0.5 % (0.0-5.0); HEMATOCRIT 36.5 % (39.0-49.0); HEMOGLOBIN 12.1 g/dL (13.1-16.8); LYMPHOCYTES ABSOLUTE AUTO 0.82 K/uL (0.50-3.50); LYMPHOCYTES PERCENT AUTO 14.3 % (10.0-50.0); MEAN CORPUSCULAR HEMOGLOBIN 34.7 pg (28.2-33.3); MEAN CORPUSCULAR HGB CONC 33.2 g/dL (31.7-36.0); MEAN CORPUSCULAR VOLUME 104.6 fL (84.0-98.0); MONOCYTES ABSOLUTE AUTO 0.73 K/uL (0.00-1.00); MONOCYTES PERCENT AUTO 12.7 % (2.0-14.0); NEUTROPHILS ABSOLUTE AUTO 4.14 K/uL (1.40-7.00); NEUTROPHILS PERCENT AUTO 72.2 % (45.0-80.0); PLATELET COUNT,PLT 162 K/uL (150-350); RED BLOOD CELL COUNT 3.49 M/uL (4.33-5.41); RED CELL DISTRIBUTION WIDTH 16.1 % (11.2-14.1); WHITE BLOOD CELL COUNT,WBC 5.7 K/uL (4.0-10.2)
[2023-11-04 12:01] LABS: ALANINE AMINOTRANSFERASE,ALT 38 U/L (12-78); ALBUMIN 3.5 g/dL (3.4-5.0); ALKALINE PHOSPHATASE 55 IU/L (46-116); ANION GAP 12.2 meq/L (7-15); ASPARTATE AMNIOTRANSFERASE,AST 22 U/L (15-37); BILIRUBIN TOTAL 0.6 mg/dL (0.2-1.0); BLOOD UREA NITROGEN,BUN 34 mg/dL (7-18); CALCIUM 8.5 mg/dL (8.5-10.1); CHLORIDE,CL 104 mmol/L (98-107); CREATININE 2.75 mg/dL (0.51-1.17); ESTIMATED GFR 24 mL/min (>=60); GLUCOSE RANDOM 206 mg/dL (70-99); POTASSIUM,K 5.2 mmol/L (3.5-5.1); SODIUM,NA 141 mmol/L (136-145)
[2023-11-04 12:10] LABS: PROTHROMBIN TIME 9.9 SEC (9.0-11.1)
[2023-11-04] MEDS: Lactated Ringers 1,000 ML IV ONE (12:18)
[2023-11-04] MEDS ORDERED: Glucagon,Human Recombinant 1 MG Vial IM PRN ×2 (13:07→13:48)
[2023-11-04] MEDS ORDERED: 50% Dextrose in Water 50 ML Syringe IVPUSH PRN ×2 (13:07→13:48)
[2023-11-04] MEDS: Prochlorperazine 10 MG/2 ML SDV IV ONE (13:44)
[2023-11-04] MEDS: diphenhydrAMINE 50 MG/ML SDV IVPUSH ONE (13:44)
[2023-11-04] MEDS: Sodium Chloride 0.9% 10 ML Syringe FLUSH PRN (13:45)
[2023-11-04] MEDS: Insulin Lispro 100 Units/ML 3 ML Vial SUBCUT ONE ×2 (13:51→16:55)
[2023-11-04 16:52] VITALS: BP 114/76; PULSE 69
[2023-11-04] MEDS ORDERED: Sodium Chloride 0.9% 10 ML Syringe FLUSH PRN (18:16)
== END 2023-11-04 14:07 | disposition home or self-care (01) ==
LOC: LL.ED 11:07
DX: U07.1 COVID-19 (principal); G44.209 Tension-type headache, unspecified, not intractable; E87.5 Hyperkalemia; I13.0 Hypertensive heart and chronic kidney disease with heart failure and stage 1 through stage 4 chronic kidney disease, or unspecified chronic kidney disease; I50.9 Heart failure, unspecified; N18.4 Chronic kidney disease, stage 4 (severe); E11.22 Type 2 diabetes mellitus with diabetic chronic kidney disease; E11.21 Type 2 diabetes mellitus with diabetic nephropathy; E11.42 Type 2 diabetes mellitus with diabetic polyneuropathy; E66.9 Obesity, unspecified; J44.9 Chronic obstructive pulmonary disease, unspecified; Z79.899 Other long term (current) drug therapy; Z79.82 Long term (current) use of aspirin; Z79.01 Long term (current) use of anticoagulants; Z88.8 Allergy status to other drugs, medicaments and biological substances; Z88.0 Allergy status to penicillin; Z88.1 Allergy status to other antibiotic agents
CPT/HCPCS: 36415; 80053; 82947; 85025; 85610; 96374; 96375; 99284; 99284-25; J0780; J1200; J1815-GY; J3490; J7120; U0002